=== PATIENT | female | born 1935 | race Caucasian/White ===

== ENCOUNTER 2017-08-23 12:20 | Emergency (ER) | payer OTHER ==
[~2017-08-23] VITALS: Ht 170.2 cm; Wt 93.3 kg
[~2017-08-23 12:20] MED LIST: DIPH-437 PO; DVN160125 PO; LPT/40 PO; WARF5TAB7 PO
[2017-08-23 12:29] VITALS: TEMP 36.7; Ht 170.2 cm; Wt 93.3 kg
[2017-08-23] MEDS ORDERED: VALS160T58 PO (12:39)
[2017-08-23] MEDS ORDERED: SIMV-151 PO (12:39)
[2017-08-23 12:56] VITALS: O2SAT 97
[2017-08-23] MEDS ORDERED: SODIUM CHLORIDE 0.9% 1000ML 1,000 ML IV STA (13:14)
--- NOTE | 2017-08-23 13:21 | EMERGENCY ROOM VISIT NOTE ---
History Report prepared by Steffen: Alysha Kulkarni Under the Supervision of: Dr. Shon Lara M.D. First contact with patient: 13:12 Chief Complaint: BLEEDING Stated Complaint: BLEEDING, RECENT INCREASE IN COUMADIN Nursing Triage Summary: pt reports coumadin increased on . noted last night blood in toilet after urinating pt reports noted blood on toilet paper after BM History of Present Illness The patient is an 81 year old female who presents to the Emergency Room with complaints of persistent rectal bleeding since last night. She does take daily Coumadin and reports this past when her she had her INR checked, it was too high, so she was told by the [facility] to increase her dosage from 5 mg to 10 mg. Last night, she got up to use the bathroom, and her told her in the morning there was blood on the edge of the toilet. This morning she had a BM, and when she wiped, she noticed "pink" on the toilet paper. She denies any past history of rectal bleeding in the past. She notes she was placed on the Coumadin for a history of PE's. The patient denies any recent fevers, abdominal pain, nausea, vomiting or increased bruising. Source of History: patient Onset: last night Position: other (rectal) Timing: other (persistent) Associated Symptoms: No fevers, No nausea, No vomiting, No abdominal pain Review of Systems See HPI for pertinent positives and negatives. A total of ten systems were reviewed and were otherwise negative. Past Medical & Surgical Medical Problems: (1) Pulmonary embolism Social History Smoking Status: Never Smoker Alcohol Use: occasionally Drug Use: none Marital Status: Housing Status: lives with family Occupation Status: retired Current/Historical Medications Scheduled Diphenhydramine-Acetaminophen (Tylenol Pm), 2 TAB PO HS Simvastatin (Simvastatin), 20 MG PO HS Valsartan/Hctz (Diovan Hct 160MG/12.5MG), 1 TAB PO HS Warfarin Sod (Jantoven), 5 MG PO DAILY Allergies Coded Allergies: No Known Allergies (Verified , 08/23/17) Physical Exam Vital Signs Date Time Temp Pulse Resp B/P (MAP) Pulse Ox O2 Delivery O2 Flow Rate FiO2 08/23/17 17:28 72 18 158/98 95 08/23/17 16:12 77 18 177/94 95 Room Air 08/23/17 14:23 73 20 152/81 98 Room Air 08/23/17 13:36 77 08/23/17 12:56 97 Room Air 08/23/17 12:29 36.7 90 20 151/89 97 Room Air Physical Exam GENERAL: Very well appearing, Awake, alert, well-appearing, in no distress. Dry mucous membranes HENT: Normocephalic, atraumatic. Oropharynx unremarkable. EYES: Normal conjunctiva. Sclera non-icteric. NECK: Supple. No nuchal rigidity. FROM. No JVD. RESPIRATORY: Clear to auscultation. CARDIAC: Regular rate, normal rhythm. Extremities warm and well perfused. Pulses equal. ABDOMEN: Soft, non-distended. No tenderness to palpation. No rebound or guarding. No masses. RECTAL: Brown stool, trace guaiac positive MUSCULOSKELETAL: Chest examination reveals no tenderness. The back is symmetrical on inspection without obvious abnormality. There is no CVA tenderness to palpation. No joint edema. LOWER EXTREMITIES: Calves are equal size bilaterally and non-tender. No edema. No discoloration. NEURO: Normal sensorium. No sensory or motor deficits noted. SKIN: No rash or jaundice noted. Medical Decision & Procedures Laboratory Results 08/23/17 12:45 Red Blood Count 4.49, Mean Corpuscular Volume 98.2, Mean Corpuscular Hemoglobin 32.1, Mean Corpuscular Hemoglobin Concent 32.7, Mean Platelet Volume 10.9, Neutrophils (%) (Auto) 67.3, Lymphocytes (%) (Auto) 21.9, Monocytes (%) (Auto) 9.3, Eosinophils (%) (Auto) 0.9, Basophils (%) (Auto) 0.5, Neutrophils # (Auto) 5.22, Lymphocytes # (Auto) 1.70, Monocytes # (Auto) 0.72, Eosinophils # (Auto) 0.07, Basophils # (Auto) 0.04 08/23/17 12:45 Test 08/23/17 12:45 08/23/17 15:20 White Blood Count 7.76 K/uL (4.8-10.8) Red Blood Count 4.49 M/uL (4.2-5.4) Hemoglobin 14.4 g/dL (12.0-16.0) Hematocrit 44.1 % (37-47) Mean Corpuscular Volume 98.2 fL (80-100) Mean Corpuscular Hemoglobin 32.1 pg (25-34) Mean Corpuscular Hemoglobin Concent 32.7 g/dl (32-36) Platelet Count 265 K/uL (130-400) Mean Platelet Volume 10.9 fL (7.4-10.4) Neutrophils (%) (Auto) 67.3 % Lymphocytes (%) (Auto) 21.9 % Monocytes (%) (Auto) 9.3 % Eosinophils (%) (Auto) 0.9 % Basophils (%) (Auto) 0.5 % Neutrophils # (Auto) 5.22 K/uL (1.4-6.5) Lymphocytes # (Auto) 1.70 K/uL (1.2-3.4) Monocytes # (Auto) 0.72 K/uL (0.11-0.59) Eosinophils # (Auto) 0.07 K/uL (0-0.5) Basophils # (Auto) 0.04 K/uL (0-0.2) RDW Standard Deviation 47.9 fL (36.4-46.3) RDW Coefficient of Variation 13.3 % (11.5-14.5) Immature Granulocyte % (Auto) 0.1 % Immature Granulocyte # (Auto) 0.01 K/uL (0.00-0.02) Prothrombin Time 26.7 SECONDS (9.0-12.0) Prothromb Time International Ratio 2.4 (0.9-1.1) Anion Gap 9.0 mmol/L (3-11) Est Creatinine Clear Calc Drug Dose 43.1 ml/min Estimated GFR () 49.1 Estimated GFR (Non- 42.4 BUN/Creatinine Ratio 23.9 (10-20) Calcium Level 9.5 mg/dl (8.5-10.1) Total Bilirubin 0.3 mg/dl (0.2-1) Direct Bilirubin < 0.1 mg/dl (0-0.2) Aspartate Amino Transf (AST/SGOT) 20 U/L (15-37) Alanine Aminotransferase (ALT/SGPT) 21 U/L (12-78) Alkaline Phosphatase 83 U/L (45-117) Total Protein 7.8 gm/dl (6.4-8.2) Albumin 3.9 gm/dl (3.4-5.0) Lipase 323 U/L (73-393) Chemistry Specimen Hemolysis Urine Color YELLOW Urine Appearance CLEAR (CLEAR) Urine pH 5.0 (4.5-7.5) Urine Specific [place] 1.020 (1.000-1.030) Urine Protein NEG (NEG) Urine Glucose (UA) NEG (NEG) Urine Ketones NEG (NEG) Urine Occult Blood NEG (NEG) Urine Nitrite NEG (NEG) Urine Bilirubin NEG (NEG) Urine Urobilinogen NEG (NEG) Urine Leukocyte Esterase SMALL (NEG) Urine WBC (Auto) 10-30 /hpf (0-5) Urine RBC (Auto) 0-4 /hpf (0-4) Urine Hyaline Casts (Auto) 0 /lpf (0-5) Urine Epithelial Cells (Auto) 10-20 /lpf (0-5) Urine Bacteria (Auto) 3+ (NEG) Laboratory results reviewed by me Medications Administered Medications (Trade) Dose Ordered Sig/Quinn Route Start Time Stop Time Status Last Admin Dose Admin Sodium Chloride 1,000 ml @ 999 mls/hr Q1H1M STAT IV 08/23/17 13:14 08/23/17 14:14 DC 08/23/17 13:34 999 MLS/HR ECG Indication: other (GI bleeding) Rate (beats per minute): 76 Rhythm: normal sinus Findings: no acute ischemic change, other (Normal intervals) ED Course 1313: The patient was evaluated in room B2. A complete history and physical exam was performed. 1314: Sodium Chloride 1000 ml @ 999 mls/hr IV I reevaluated the patient. Discussed results and discharge instructions: She verbalized understanding and agreement. The patient is ready for discharge. Medical Decision I reviewed the patient's past medical history, medications, and the nursing notes as described above. The differential diagnoses considered include: supratherapeutic INR, rectal bleeding, UTI, and vaginal bleeding. l The patient is a 81-year-old woman with a past medical history of dVT on Coumadin who presents to the emergency department with report of rectal bleeding where she noticed some blood on the toilet seat and then on the toilet paper today per HPI. Arrives, AFVSS in NAD. Denies any lightheadedness chest pain or shortness of breath. Labs unremarkable today with INR 2.4, H&H within normal limits. BUN however elevated over this would suggest a more likely upper GI bleed and the patient denies any melanotic stools rather red blood. Patient preferring discharge at this time. Findings and plan for follow-up d/w patient. Patient agreeable and d/c'd per discharge instructions. Medication Reconcilliation Current Medication List: was personally reviewed by me Blood Pressure Screening Patient's blood pressure: Elevated blood pressure The patient did not take her daily BP medication today. Impression Primary Impression: Rectal bleed Scribe Attestation The scribe's documentation has been prepared under my direction and personally reviewed by me in its entirety. I confirm that the note above accurately reflects all work, treatment, procedures, and medical decision making performed by me. Departure Information Dispostion Home / Self-Care Referrals Elo Olvera D.O. (PCP) Patient Instructions Bleeding Rectal, [facility] Additional Instructions Please follow up with your primary care physician in the next 1-3 days for re- evaluation and to discuss her symptoms and possible GI referral for colonoscopy. You did not have any active bleeding here in the emergency department. Stool was brown did test positive lightly for blood. Otherwise, your exam, EKG, and lab results did not show signs of an emergent condition at this time. Return to the emergency department for worsening symptoms as described in the accompanying instructions.
[2017-08-23 13:31] LABS: BASO % 0.5 %; BASO ABS # 0.04 K/uL (0-0.2); COMPLETE YES; EOS % 0.9 %; HEMATOCRIT 44.1 % (37-47); IG% 0.1 %; LYMPH % 21.9 %; MEAN CELL VOLUME 98.2 fL (80-100); MEAN CORPUSCULAR HEMOGLOBIN 32.1 pg (25-34); MEAN CORPUSCULAR HGB CONC 32.7 g/dl (32-36); MEAN PLATELET VOLUME 10.9 fL (7.4-10.4); MONO % 9.3 %; NEUT % 67.3 %; PLATELET COUNT 265 K/uL (130-400); RED BLOOD COUNT 4.49 M/uL (4.2-5.4); WHITE BLOOD COUNT 7.76 K/uL (4.8-10.8)
[2017-08-23 13:34] LABS: INR 2.4 (0.9-1.1); PROTHROMBIN TIME (PATIENT) 26.7 SECONDS (9.0-12.0)
[2017-08-23 14:11] LABS: ALT/SGPT 21 U/L (12-78); AST/SGOT 20 U/L (15-37); BLOOD UREA NITROGEN 29 mg/dl (7-18); BUN/CREATININE RATIO 23.9 (10-20); CALCIUM 9.5 mg/dl (8.5-10.1); CARBON DIOXIDE 27 mmol/L (21-32); CHLORIDE 104 mmol/L (98-107); GLUCOSE 103 mg/dl (70-99); SODIUM 140 mmol/L (136-145)
[2017-08-23 14:24] LABS: ALKALINE PHOSPHATASE 83 U/L (45-117)
[2017-08-23 15:28] LABS: URINE APPEARANCE CLEAR (CLEAR); URINE BILIRUBIN NEG (NEG); URINE COLOR YELLOW; URINE NITRITE NEG (NEG); UROBILINOGEN NEG (NEG); ZZUR CULT IF INDIC CLEAN CATCH YES
[2017-08-23 15:29] LABS: MANUAL MICROSCOPIC REQUIRED? NO; REVIEW REQ? NO
[2017-08-23 17:28] VITALS: BP 158/98; PULSE 72; O2SAT 95
--- NOTE | 2017-08-25 15:49 | Pharmacy Progress Note ---
ED Pharmacist Culture FollowUp Date of Service: Aug 25, 2017. Patient came to ER for rectal bleeding. Incidentally a urine culture showed E. Coli. After discussing with Dr Lara who saw the patient, it was decided that I parveen call the patient and see how she was feeling. If she was exhibiting any signs of infection then I would call in a RX for cephalexin 500mg BID X 7 days, but if she felt fine then no antibiotics were necessary as the patient did not have any signs of a UTI upon ER visit. When I called the patient she stated she felt perfectly fine. Of note, she denied urinary symptoms, fatigue, and confusion.Thus no antibiotics are warranted at this time. I did inform her to give us a call back if she should experience any new signs or symptoms of infection.
== END 2017-08-23 17:28 | disposition home or self-care (01) ==
LOC: C.EDB 12:24
DX: K62.5 Hemorrhage of anus and rectum (principal); Z86.711 Personal history of pulmonary embolism; Z79.01 Long term (current) use of anticoagulants; Z79.899 Other long term (current) drug therapy

== ENCOUNTER 2018-02-26 12:01 | Emergency (ER) | payer OTHER ==
[~2018-02-26] VITALS: Ht 167.6 cm; Wt 94.9 kg
[~2018-02-26 12:01] MED LIST changes: -DVN160125 PO; -LPT/40 PO; +SIMV-151 PO; +VALS160T58 PO
[2018-02-26 12:03] VITALS: Ht 167.6 cm; Wt 94.9 kg
[2018-02-26 13:01] LABS: BASO % 0.6 %; BASO ABS # 0.03 K/uL (0-0.2); EOS % 1.5 %; EOS ABS # 0.08 K/uL (0-0.5); HEMATOCRIT 40.4 % (37-47); HEMOGLOBIN 13.7 g/dL (12.0-16.0); IG# 0.01 K/uL (0.00-0.02); LYMPH % 24.9 %; MEAN CELL VOLUME 97.3 fL (80-100); MEAN CORPUSCULAR HGB CONC 33.9 g/dl (32-36); MEAN PLATELET VOLUME 10.4 fL (7.4-10.4); MONO % 12.6 %; MONO ABS # 0.66 K/uL (0.11-0.59); NEUT % 60.2 %; NEUT ABS # 3.15 K/uL (1.4-6.5); PLATELET COUNT 244 K/uL (130-400); RED CELL DISTRIBUTION WIDTH CV 13.1 % (11.5-14.5); RED CELL DISTRIBUTION WIDTH SD 46.7 fL (36.4-46.3); WHITE BLOOD COUNT 5.23 K/uL (4.8-10.8)
--- NOTE | 2018-02-26 13:15 | EMERGENCY ROOM VISIT NOTE ---
ED Visit Note First contact with patient: 12:23 I have seen and examined this patient with Karthik Small and generally agree with the treatment plan as discussed. Current/Historical Medications Scheduled Diphenhydramine-Acetaminophen (Tylenol Pm), 2 TAB PO HS Simvastatin (Simvastatin), 20 MG PO HS Valsartan/Hctz (Diovan Hct 160MG/12.5MG), 1 TAB PO HS Warfarin Sod (Jantoven), 5 MG PO DAILY Allergies Coded Allergies: No Known Allergies (Verified , 08/23/17) Vital Signs Date Time Temp Pulse Resp B/P (MAP) Pulse Ox O2 Delivery O2 Flow Rate FiO2 02/26/18 12:53 78 18 148/80 92 Room Air 02/26/18 12:03 36.3 93 20 139/77 95 Room Air Laboratory Results 02/26/18 12:48 Red Blood Count 4.15, Mean Corpuscular Volume 97.3, Mean Corpuscular Hemoglobin 33.0, Mean Corpuscular Hemoglobin Concent 33.9, Mean Platelet Volume 10.4, Neutrophils (%) (Auto) 60.2, Lymphocytes (%) (Auto) 24.9, Monocytes (%) (Auto) 12.6, Eosinophils (%) (Auto) 1.5, Basophils (%) (Auto) 0.6, Neutrophils # (Auto ) 3.15, Lymphocytes # (Auto) 1.30, Monocytes # (Auto) 0.66, Eosinophils # (Auto ) 0.08, Basophils # (Auto) 0.03 Test 02/26/18 12:48 White Blood Count 5.23 K/uL (4.8-10.8) Red Blood Count 4.15 M/uL (4.2-5.4) Hemoglobin 13.7 g/dL (12.0-16.0) Hematocrit 40.4 % (37-47) Mean Corpuscular Volume 97.3 fL (80-100) Mean Corpuscular Hemoglobin 33.0 pg (25-34) Mean Corpuscular Hemoglobin Concent 33.9 g/dl (32-36) Platelet Count 244 K/uL (130-400) Mean Platelet Volume 10.4 fL (7.4-10.4) Neutrophils (%) (Auto) 60.2 % Lymphocytes (%) (Auto) 24.9 % Monocytes (%) (Auto) 12.6 % Eosinophils (%) (Auto) 1.5 % Basophils (%) (Auto) 0.6 % Neutrophils # (Auto) 3.15 K/uL (1.4-6.5) Lymphocytes # (Auto) 1.30 K/uL (1.2-3.4) Monocytes # (Auto) 0.66 K/uL (0.11-0.59) Eosinophils # (Auto) 0.08 K/uL (0-0.5) Basophils # (Auto) 0.03 K/uL (0-0.2) RDW Standard Deviation 46.7 fL (36.4-46.3) RDW Coefficient of Variation 13.1 % (11.5-14.5) Immature Granulocyte % (Auto) 0.2 % Immature Granulocyte # (Auto) 0.01 K/uL (0.00-0.02) Departure Information Referrals Elo Olvera D.O. (PCP) Patient Instructions [facility]
[2018-02-26 13:16] LABS: CALCIUM 9.5 mg/dl (8.5-10.1); CREATININE 1.03 mg/dl (0.60-1.20); POTASSIUM 3.8 mmol/L (3.5-5.1)
--- NOTE | 2018-02-26 14:27 | DIAGNOSTIC IMAGING REPORT ---
BILATERAL LOWER EXTREMITY VENOUS DOPPLER HISTORY: hx DVT; increasing leg cramping bilaterally COMPARISON STUDY: None. FINDINGS: There is normal compressibility, flow, and augmentation within the bilateral lower extremity deep venous systems. The calf vessels were suboptimally visualized due to the patient's body habitus but likely patent. There is a 5.9 x 3.3 x 1.5 cm popliteal cyst on the right. IMPRESSION: No DVT within the right or left lower extremity. Electronically signed by: Sohan Lara M.D. 02/26/2018 2:26 PM Dictated Date/Time: 02/26/2018 2:25 PM
[2018-02-26 15:04] VITALS: BP 142/63; PULSE 73; TEMP 36.3; O2SAT 97
--- NOTE | 2018-02-26 17:45 | EMERGENCY ROOM VISIT NOTE ---
ED Visit Note First contact with patient: 12:23 Chief Complaint: Bilateral leg cramping. History of Present Illness: Ms. Blanco is an 82-year-old white female who ambulates into the ED complaining of bilateral lateral leg cramping of the thighs and lower legs. Historically patient reports she is a history of pulmonary emboli and is currently on Coumadin therapy. Patient reports that she has just returned from a trip from [place]. While on her trip she reports that she was in a wheelchair or on a motorized scooter for 12 hours a day; family members did this because she has osteoarthritis of the knees and felt she would be more comfortable. Patient reports since being home for the last few days she has noticed that when ambulating during the day she is developing cramping sensations over the lateral aspect of the thighs and the lower legs and when sleeping at night she is also having cramping. She has not identified any alleviating factors related to this discomfort. She rates her discomfort 8/10. She has not taken any medications for her discomfort prior to arrival at the hospital. She denies any associated symptoms including fevers, chills, sweats, skin eruptions , leg swelling, palpitations, orthopnea, dependent edema, recent trauma, chest pain, shortness of breath, leg weakness/numbness/tingling. Review of Systems: As noted above in history of present illness. 8 body systems were reviewed and found to be negative as noted above. Past Medical History: As previously noted, hypertension, unspecified kidney disease, status post appendectomy and cholecystectomy. Current Medications: Medications Dose Route/Sig Max Daily Dose Days Date Category Diovan Hct 160MG/12.5MG (HCTZ/Valsartan) 1 Tab Tab 1 Tab PO HS 08/23/17 Reported Simvastatin 20 Mg Tab 20 Mg PO HS 08/23/17 Reported Tylenol Pm (Diphenhydramine-Acetaminophen) 1 Tab Tab 2 Tab PO HS 11/01/15 Reported Jantoven (Warfarin Sodium) 5 Mg Tab 5 Mg PO DAILY 06/04/13 Reported Allergies to Medications: Patient denies. Social History: Patient is not currently employed; she lives with her spouse and feels safe in her home environment; she denies tobacco and alcohol use. Physical Examination: Vital Signs: Date Time Temp Pulse Resp B/P (MAP) Pulse Ox O2 Delivery O2 Flow Rate FiO2 02/26/18 15:04 36.3 73 18 142/63 97 02/26/18 14:53 73 18 142/63 97 Room Air 02/26/18 12:53 78 18 148/80 92 Room Air 02/26/18 12:03 36.3 93 20 139/77 95 Room Air GENERAL: 82-year-old female in mild to moderate distress due to pain, nontoxic- appearing, afebrile and hemodynamically stable. NEUROLOGICAL: Awake, alert and oriented to person, place and time. Answering questions appropriately and following commands. Normal gait. Good hand eye coordination. No focal motor or sensory deficits. SKIN: Warm, dry and pink. No soft tissue eruptions or trauma noted. HEENT: Atraumatic and normocephalic. BACK: No tenderness over the bony spine. No CVA tenderness. THORAX: Lungs sounds are clear to auscultation and equal bilaterally with symmetrical chest wall. No wheezing, rales or rhonchi. No crepitus, tenderness , subcutaneous air or deformities noted. HEART: Regular rate and rhythm. No gallops, rubs or murmurs are appreciated. ABDOMEN: Obese, soft and nontender. Positive bowel sounds in all quadrants. No guarding, rigidity or organomegaly. EXTREMITIES: Moves all extremities well on command and with purpose. Distal pulses and capillary refill are intact bilaterally. No calf tenderness or cords. 4/5 muscle strength in all movements of the hips, knees, ankles and feet. Mild dependent edema bilaterally. Able to distinguish light sensations through all dermatomes of the lower legs and feet. ED Course: Patient is assessed as noted above. Patient's medication list was reviewed. Patient was offered pain medication and refused. Laboratory Testing: Test 02/26/18 12:48 02/26/18 12:49 Range/Units White Blood Count 5.23 4.8-10.8 K/uL Red Blood Count 4.15 4.2-5.4 M/uL Hemoglobin 13.7 12.0-16.0 g/dL Hematocrit 40.4 37-47 % Mean Corpuscular Volume 97.3 80-100 fL Mean Corpuscular Hemoglobin 33.0 25-34 pg Mean Corpuscular Hemoglobin Concent 33.9 32-36 g/dl Platelet Count 244 130-400 K/uL Mean Platelet Volume 10.4 7.4-10.4 fL Neutrophils (%) (Auto) 60.2 % Lymphocytes (%) (Auto) 24.9 % Monocytes (%) (Auto) 12.6 % Eosinophils (%) (Auto) 1.5 % Basophils (%) (Auto) 0.6 % Neutrophils # (Auto) 3.15 1.4-6.5 K/uL Lymphocytes # (Auto) 1.30 1.2-3.4 K/uL Monocytes # (Auto) 0.66 0.11-0.59 K/uL Eosinophils # (Auto) 0.08 0-0.5 K/uL Basophils # (Auto) 0.03 0-0.2 K/uL RDW Standard Deviation 46.7 36.4-46.3 fL RDW Coefficient of Variation 13.1 11.5-14.5 % Immature Granulocyte % (Auto) 0.2 % Immature Granulocyte # (Auto) 0.01 0.00-0.02 K/uL Sodium Level 139 136-145 mmol/L Potassium Level 3.8 3.5-5.1 mmol/L Chloride Level 106 98-107 mmol/L Carbon Dioxide Level 27 21-32 mmol/L Anion Gap 6.0 3-11 mmol/L Blood Urea Nitrogen 21 7-18 mg/dl Creatinine 1.03 0.60-1.20 mg/dl Est Creatinine Clear Calc Drug Dose 48.9 ml/min Estimated GFR () 58.6 Estimated GFR (Non- 50.6 BUN/Creatinine Ratio 20.2 10-20 Random Glucose 81 70-99 mg/dl Calcium Level 9.5 8.5-10.1 mg/dl Magnesium Level 2.2 1.8-2.4 mg/dl Bedside Prothrombin Time INR 2.6 0.9-1.1 Bilateral Lower Extremity Venous Doppler Ultrasounds: Were reviewed by myself and read by the radiologist showing no right or left lower extremity DVTs. Radiologist does note a right sided popliteal cyst. Patient was reassessed multiple times during her stay in the emergency department. Patient's case was reviewed with Dr. Monroe; he and apparently assessed the patient we agreed on diagnostic approach, treatment, disposition and plan. Patient was educated about today's findings and instructed on her treatment plan ; she verbalized understanding and agreement with this plan. Clinical Impression: Bilateral leg cramping. Decision-Making: Initially my differential diagnosis I considered DVT, electrolyte abnormality, metabolic disturbance, muscle strain and other causes. Disposition: Patient discharged home in stable condition accompanied by her ; prior to departure she was reassessed and subjectively reported she was feeling better and she was pain-free. Plan: Patient was encouraged to continue her current medications as prescribed. Patient was encouraged to use 650 mg of acetaminophen as needed for pain. Patient was encouraged to stay well-hydrated with increased clear fluids. Patient was encouraged to follow-up with her PCP for recheck. Patient was encouraged return the ED for worsening cramping, leg swelling, fevers, chest pain, shortness of breath, palpitations or any new/concerning symptoms.
== END 2018-02-26 15:05 | disposition home or self-care (01) ==
LOC: C.EDB 12:02 → C.EDD 15:05
DX: R25.2 Cramp and spasm (principal); M17.0 Bilateral primary osteoarthritis of knee; Z86.711 Personal history of pulmonary embolism; I10 Essential (primary) hypertension; N28.9 Disorder of kidney and ureter, unspecified; Z90.89 Acquired absence of other organs; Z79.01 Long term (current) use of anticoagulants; Z79.899 Other long term (current) drug therapy

== ENCOUNTER 2025-02-24 21:08 | Inpatient (IN) ==
[2025-02-24 21:37] LABS: iSTAT Creatinine 1.6 mg/dl (0.6-1.3); iSTAT Hemoglobin 13.3 g/dl (12.0-16.0); iSTAT Ionized Calcium 1.16 mmol/l (1.12-1.32)
[2025-02-24] MEDS: ONDANSETRON INJ 2 MG/ML 2 ML VIAL IV STA (21:42)
[2025-02-24] MEDS: ACETAMINOPHEN 1,000 MG/100 ML VIAL IV STA (21:43)
[2025-02-24] MEDS: SODIUM CHLORIDE 0.9% 1,000 ML IV SCH (21:44)
[2025-02-24] MEDS: SODIUM CHLORIDE 0.9% 500 ML IV ONE (21:44)
[2025-02-24 21:59] LABS: Hematocrit (blood only) 37.4 % (37.0-47.0); Hemoglobin 12.6 g/dl (12.0-16.0); Mean Corpuscular Hemoglobin 30.9 pg (25.0-34.0); Mean Corpuscular Hgb Conc 33.7 g/dL (32.0-36.0); Mean Corpuscular Volume 91.7 fL (80.0-100.0); Mean Platelet Volume 10.5 fL (9.4-12.4); Platelet Count 318 K/uL (130-400); RDW Coefficient of Variation 13.4 % (11.5-14.5); RDW Standard Deviation 45.2 fL (36.4-46.3); Red Blood Count 4.08 M/uL (4.20-5.40); White Blood Count 14.47 K/ul (4.8-10.8)
[2025-02-24 22:12] LABS: Appearance Urine Clear (Clear); Bacteria Urine Automated 4+ (None Seen); Bilirubin Urine 1+ (Negative); Blood Urine Trace (Negative); Cast Urine Automated 0-2 /lpf (0-2); Color Urine Dark Yellow; Glucose Urine UA Negative (Negative); Ketones Urine Trace (Negative); Leukocyte Esterase Urine 2+ (Negative); Nitrite Urine Negative (Negative); Protein Urine 1+ (Negative); RBC Urine Automated 0-2 /hpf (0-2); Specific Gravity Urine 1.016 (1.000-1.030); Urobilinogen Urine Negative (Negative); WBC Urine Automated 21-50 /hpf (0-5); pH Urine 5.5 (4.5-7.5)
[2025-02-24 22:17] LABS: BUN Creatinine Ratio 13.6 (10-20); Calcium 9.5 mg/dl (8.6-10.3); Creatinine Clr Calc Pharmacy 26.4 ml/min
[2025-02-24 22:19] LABS: Basophils # (auto) 0.02 K/uL (0.00-0.20); Basophils % (auto) 0.1 %; Immature Granulocytes # (auto) 0.05 K/uL (0.01-0.20); Immature Granulocytes % (auto) 0.3 %; Lymphocytes # (auto) 0.52 K/uL (1.20-3.40); Lymphocytes % (auto) 3.6 %; Monocytes # (auto) 0.21 K/uL (0.11-0.59); Monocytes % (auto) 1.5 %; Neutrophils # (auto) 13.67 K/uL (1.40-6.50); Neutrophils % (auto) 94.5 %
[2025-02-24 22:24] LABS: Troponin I High Sensitivity 15.6 pg/ml (0-14)
[2025-02-24 22:34] LABS: Albumin Level 4.1 gm/dl (3.4-5.0); Bilirubin,Total 3.1 mg/dl (0.2-1.0); Total Protein 8.1 gm/dl (6.0-8.3)
[2025-02-24] MEDS: cefTRIAXone SODIUM 2,000 MG/50 ML BAG IV STA (23:01)
[2025-02-24] MEDS ORDERED: HYDROmorphone INJ 0.5 MG/0.5 ML SYR IV PRN (23:22)
--- NOTE | 2025-02-24 23:37 | Emergency Department Note ---
Impression & Plan Pancreatitis, Elevated LFTs, Vomiting, Acute UTI (urinary tract infection), Back pain ED Provider Note NAME: ELENA PARISI AGE: 89 SEX: Female INFORMANT: Patient ED PROVIDER(S): Karthik Brown MD CHIEF COMPLAINT: Abdominal pain PLAN: Disposition: Admitted Outpatient prescription management: none Referral: None MEDICAL DECISION MAKING: Patient presented because of back and abdominal pain. She was tender on examination. Workup was initiated. She was found to have a leukocytosis on CBC. Chemistry panel unremarkable. Patient had elevated LFTs and significant elevation of lipase consistent with pancreatitis. The patient was receiving saline hydration. She had received IV Tylenol before labs were back. Patient was given IV Rocephin due to UTI found on urinalysis. IV metronidazole was added for coverage of the biliary tree. Patient's IV fluids were changed to lactated Ringer's. CT imaging reveals degenerative changes in the spine and findings concerning for pancreatitis. Official radiology reads are pending at this time. I did discuss the case with on-call gastroenterology, . Case discussed and diagnostics were reviewed. He recommended admission. Patient will need GI consultation and he will see her in the morning. Did discuss MRCP and he was in agreement. Patient was reassessed and was doing well. IV Dilaudid was ordered as she was still having some pain. [facility] Dr. Johnson. Discussed GI consultation and MRCP recommendations. Patient was evaluated in the ER and admitted for further management Care/management discussed with: food production manager Level of care consideration(s): After review of the information above and other included data, I feel the patient required escalation of care to admission Triage Nursing notes: reviewed and agree them. Vital Signs: reviewed and remarkable for no significant abnormalities Additional History obtained from: none Chronic Medical/Social Conditions affecting care: Spinal stenosis Prior/ Outside/ External records reviewed: none Differential Diagnosis: Renal colic, UTI, appendicitis, diverticulitis, mesenteric ischemia, aortic pathology, infections, inflammatory bowel disease, PUD, biliary pathology, spinal pathology, as well as other pathologies. Diagnostics, independently interpreted by me: ECG: Twelve-lead ECG reveals a normal sinus rhythm at 93 bpm. LVH. No T WI. Cardiac Monitoring: Cardiac monitoring ordered by me: The patient was placed on continuous cardiac monitoring and observed. It revealed a normal sinus rhythm at 75 beats per minute without ectopy or evidence of dysrhythmia. Medical decision rules: none Imaging studies: CT imaging of the abdomen pelvis reveals biliary ductal dilatation with stranding around the pancreatic head concerning for pancreatitis. CT imaging of the lumbar spine reveals significant degenerative changes. Official radiology report is pending at this time. I refer you to the EMR for further details. HPI: 89 year old Female arrives for evaluation of abdominal pain. This started yesterday and is worsening today. The patient also notes the following associated symptoms, low back pain and right-sided abdominal pain with nausea and vomiting. Patient has a history of spinal stenosis and back pain. She was seen by pain management. No injections were performed. Patient notes that her back was more sore and she started to develop abdominal discomfort. She vomited twice today. The patient has took a dose of prednisone today for relieving factors. Current pain is rated as 7/10. 2 weeks ago the patient felt like she had a gallbladder attack with right upper quadrant abdominal discomfort vomiting and she felt chilled. She notes she was not seen for that and it resolved on its own. Pt denies LOC, headache, fevers, chills, diaphoresis, visual changes, neck pain, chest pain, breathing difficulties, nausea, vomiting, abdominal pain, back pain, melena, hematochezia, urinary symptoms, numbness, weakness, lymphadenopathy, rash, or other complaints.. PAST MEDICAL HISTORY: See Below, hypertension, hyperlipidemia PAST SURGICAL HISTORY: See Below, cholecystectomy SOCIAL HISTORY: See Below, HOME MEDICATIONS: See Below ALLERGIES: See Below VITALS: See Below PHYSICAL EXAMINATION: GENERAL: Awake, alert, uncomfortable-appearing, in no distress HENT: Normocephalic, atraumatic. Oropharynx unremarkable. EYES: Normal conjunctiva. Sclera non-icteric. NECK: Inspection normal. Non-tender. Supple. No nuchal rigidity. FROM. No masses. RESPIRATORY: Clear to auscultation. No wheezes. No rales. Normal respiratory effort. CARDIAC: Normal rate. Normal rhythm. No murmurs. No rubs. Extremities warm and well perfused. Pulses equal. No JVD. GI: Soft, non-distended. Midline and right upper quadrant tenderness to palpation. No rebound or guarding. No masses. RECTAL: Deferred. MUSCULOSKELETAL: Atraumatic. Chest examination reveals no tenderness. The back is kyphotic on inspection without obvious abnormality. There is no CVA tenderness to palpation. No joint edema. LOWER EXTREMITIES: Calves are equal size bilaterally and non-tender. No edema. No discoloration. NEURO: Normal sensorium. No sensory or motor deficits noted. SKIN: No rash or jaundice noted. PROCEDURES: none CRITICAL CARE: none OBSERVATION NOTE: none Past Med/Surg History Problem List (Updated 02/24/25 @ 23:37 by Karthik Brown MD) Back pain (Acute) Acute UTI (urinary tract infection) (Acute) Vomiting (Acute) Elevated LFTs (Acute) Pancreatitis (Acute) HTN (hypertension) HLD (hyperlipidemia) Medical History No pertinent family history HTN (hypertension) HLD (hyperlipidemia) Surgical History No pertinent past surgical history Social History Smoking Status: Never smoker Preferred Language: Swiss Feels Safe at Home: Yes Allergies Allergies Allergy/AdvReac Type Severity Reaction Status Date / Time Penicillins Allergy Intermediate Hives Verified 02/24/25 22:19 Influenza Virus Vaccines AdvReac Intermediate Muscle Pain Verified 02/24/25 22:19 Home Meds Home Medications Medication Instructions Recorded Confirmed omeprazole magnesium 20 mg 20 mg PO DAILY 06/03/22 02/24/25 tablet,delayed release (Prilosec OTC) simvastatin 20 mg tablet 20 mg PO HS 06/03/22 02/24/25 warfarin 5 mg tablet 2.5 mg PO 4XWK 06/03/22 02/24/25 warfarin 5 mg tablet 5 mg PO 3XWK 06/03/22 02/24/25 amlodipine 5 mg tablet 5 mg PO DAILY 02/24/25 02/24/25 aspirin 81 mg tablet,delayed 81 mg PO HS 02/24/25 02/24/25 release cholecalciferol (vitamin D3) 25 25 mcg PO DAILY 02/24/25 02/24/25 mcg (1,000 unit) capsule (Vitamin D3) cyanocobalamin (vitamin B-12) 100 100 mcg PO DAILY 02/24/25 02/24/25 mcg tablet (Vitamin B-12) hydrochlorothiazide 12.5 mg tablet 12.5 mg PO DAILY 02/24/25 02/24/25 losartan 50 mg tablet 50 mg PO DAILY 02/24/25 02/24/25 Results & Data (ED) Vital Signs Vital Signs - 24 hr 02/24/25 20:54 02/24/25 21:18 02/24/25 21:54 Temperature 36.3 C L Temperature Source Axillary Pulse Rate 99 H 102 H 96 H Pulse Rate [Apical] Pulse Rhythm Regular Pulse Rhythm [Apical] Pulse Strength Normal Pulse Strength [Apical] Respiratory Rate 24 Respiratory Effort / Characteristics Non-Labored Respiratory Depth Normal Respiratory Pattern Regular Blood Pressure 175/77 H Blood Pressure [Left Arm] Blood Pressure Mean 109 Blood Pressure Mean [Left Arm] Blood Pressure Position Lying Blood Pressure Position [Left Arm] Pulse Oximetry 96 93 Oxygen Delivery Method Room Air Room Air Sepsis Recent Fever Within 48 Hours No Sepsis New/Unexplained Change in Mental Status N/A Sepsis Action Taken by Nursing No Action Required 02/24/25 23:07 Temperature Temperature Source Pulse Rate Pulse Rate [Apical] 75 Pulse Rhythm Pulse Rhythm [Apical] Regular Pulse Strength Pulse Strength [Apical] Normal Respiratory Rate 17 Respiratory Effort / Characteristics Non-Labored Respiratory Depth Normal Respiratory Pattern Regular Blood Pressure Blood Pressure [Left Arm] 126/70 Blood Pressure Mean Blood Pressure Mean [Left Arm] 88 Blood Pressure Position Blood Pressure Position [Left Arm] Lying Pulse Oximetry 93 Oxygen Delivery Method Room Air Sepsis Recent Fever Within 48 Hours Sepsis New/Unexplained Change in Mental Status Sepsis Action Taken by Nursing Laboratory Data 02/24/25 21:20 02/24/25 21:20 Lab Results 02/24/25 02/24/25 02/24/25 Range/Units 21:00 21:20 21:26 WBC 14.47 H (4.8-10.8) K/ul RBC 4.08 L (4.20-5.40) M/uL Hgb 12.6 (12.0-16.0) g/dl POC Hgb 13.3 (12.0-16.0) g/dl Hct 37.4 (37.0-47.0) % POC Hct 39 (37-47) % MCV 91.7 (80.0-100.0) fL MCH 30.9 (25.0-34.0) pg MCHC 33.7 (32.0-36.0) g/dL RDW Std Deviation 45.2 (36.4-46.3) fL RDW Coeff of [place]thea 13.4 (11.5-14.5) % Plt Count 318 (130-400) K/uL MPV 10.5 (9.4-12.4) fL Immature Gran % (Auto) 0.3 % Neut % (Auto) 94.5 % Lymph % (Auto) 3.6 % [place] % (Auto) 1.5 % Eos % (Auto) 0.0 % Baso % (Auto) 0.1 % Neut # (Auto) 13.67 H (1.40-6.50) K/uL Lymph # (Auto) 0.52 L (1.20-3.40) K/uL [place] # (Auto) 0.21 (0.11-0.59) K/uL Eos # (Auto) 0.00 (0.00-0.50) K/uL Baso # (Auto) 0.02 (0.00-0.20) K/uL Immature Gran # (Auto) 0.05 (0.01-0.20) K/uL POC Sodium 136 (135-144) mmol/L Sodium 133 L (136-145) mmol/L POC Potassium 4.0 (3.3-5.0) mmol/L Potassium 4.0 (3.5-5.1) mmol/L POC Chloride 104 (101-112) mmol/L Chloride 101 (98-107) mmol/L Carbon Dioxide 21 (21-32) mmol/L POC Total CO2 19 L (24-31) mmol/L Anion Gap 11 (3-11) POC Anion Gap 18.0 (16-25) mmol/L POC BUN 21 H (7-18) mg/dl BUN 22 (6-23) mg/dl Creatinine 1.62 H (0.6-1.2) mg/dl POC Creatinine 1.6 H (0.6-1.3) mg/dl Est Cr Clr Drug Dosing 26.4 ml/min eGFR 30.18 BUN/Creatinine Ratio 13.6 (10-20) Glucose 133 H (70-99(Fasting)) mg/dl POC Glucose (other) 140 H (70-99) mg/dl Calcium 9.5 (8.6-10.3) mg/dl POC Ioniz Calcium [place] 1.16 (1.12-1.32) mmol/l Total Bilirubin 3.1 H (0.2-1.0) mg/dl AST 203 H (13-39) U/L ALT 197 H (7-52) U/L Alkaline Phosphatase 194 H (34-104) U/L Troponin I High Sens 15.6 H (0-14) pg/ml Total Protein 8.1 (6.0-8.3) gm/dl Albumin 4.1 (3.4-5.0) gm/dl Globulin 4.0 (2.5-4.0) gm/dl Albumin/Globulin Ratio 1.0 (0.9-2) Lipase 39346 H (11-82) U/L Urine Color Dark Yellow Urine Appearance Clear (Clear) Urine pH 5.5 (4.5-7.5) Ur Specific [place] 1.016 (1.000-1.030) Urine Protein 1+ H (Negative) Urine Glucose (UA) Negative (Negative) Urine Ketones Trace H (Negative) Urine Blood Trace H (Negative) Urine Nitrite Negative (Negative) Urine Bilirubin 1+ H (Negative) Urine Urobilinogen Negative (Negative) Ur Leukocyte Esterase 2+ H (Negative) Urine WBC (Auto) 21-50 H (0-5) /hpf Urine RBC (Auto) 0-2 (0-2) /hpf U Hyaline Cast (Auto) 0-2 (0-2) /lpf U Epithel Cells (Auto) 3-5 H (0-2) /hpf Urine Bacteria (Auto) 4+ H (None Seen) Administered Medications Discontinued Medications Sodium Chloride (Nss) 500 mls @ 999 mls/hr IV .Q31M ONE Stop: 02/24/25 21:58 Last Infusion: 02/24/25 22:34 Dose: Infused Documented By: Admin: 02/24/25 21:44 Dose: 999 mls/hr Documented By: LYNETTE Sodium Chloride (Nss) 1,000 mls @ 125 mls/hr IV .Q8H KAIDEN Stop: 02/25/25 21:29 Last Admin: 02/24/25 21:44 Dose: 125 mls/hr Documented By: LYNETTE Acetaminophen (Ofirmev) 1,000 mg in 100 mls @ 400 mls/hr IV NOW STA Stop: 02/24/25 21:42 Last Infusion: 02/24/25 22:05 Dose: Infused Documented By: Admin: 02/24/25 21:43 Dose: 400 mls/hr Documented By: LYNETTE Ceftriaxone Sodium (Rocephin) 2,000 mg in 50 mls @ 100 mls/hr IV NOW STA Stop: 02/24/25 23:05 Last Admin: 02/24/25 23:01 Dose: 100 mls/hr Documented By: JE Ondansetron HCl (Ondansetron Inj 2 Mg/Ml 2 Ml Vial) 4 mg IV NOW STA Stop: 02/24/25 21:29 Last Admin: 02/24/25 21:42 Dose: 4 mg Documented By: LYNETTE Discharge Plan Visit Data Chief Complaint: Abdominal Pain Stated Complaint: BACK AND ABD PAIN, VOMITING SINCE ED Provider: Karthik Brown Discharge Problem: Pancreatitis, Elevated LFTs, Vomiting, Acute UTI (urinary tract infection), Back pain Forms Stand Alone Forms: [facility] IO Prescriptions Prescriptions: No Action simvastatin 20 mg tablet 20 mg PO HS warfarin 5 mg tablet 5 mg PO 3XWK Rx Instructions: TAKES TU, , & SAT. EVENINGS warfarin 5 mg tablet 2.5 mg PO 4XWK Rx Instructions: TAKES SUN, MON, WED, & FRI EVENINGS omeprazole magnesium [Prilosec OTC] 20 mg Tablet,Delayed Release (Dr/Ec) 20 mg PO DAILY losartan 50 mg tablet 50 mg PO DAILY cyanocobalamin (vitamin B-12) [Vitamin B-12] 100 mcg Tablet 100 mcg PO DAILY amlodipine 5 mg tablet 5 mg PO DAILY aspirin 81 mg Tablet,Delayed Release (Dr/Ec) 81 mg PO HS cholecalciferol (vitamin D3) [Vitamin D3] 25 mcg (1,000 unit) Capsule 25 mcg PO DAILY hydrochlorothiazide 12.5 mg tablet 12.5 mg PO DAILY Referrals Referrals: Elo Olvera DO [Primary Care Provider] -
--- NOTE | 2025-02-24 23:57 | CT Scan Report ---
Exam(s): CT ABDOMEN + PELVIS Without Contrast EXAM: CT Abdomen and Pelvis Without Intravenous Contrast CLINICAL HISTORY: Reason for exam: right and mid abd pain, vomiting. TECHNIQUE: Axial computed tomography images of the abdomen and pelvis without intravenous contrast. CTDI is 26.28 mGy and DLP is 1242.93 mGy-cm. Automated exposure control was utilized for the study. A dose lowering technique was utilized adhering to the principles of ALARA. COMPARISON: No relevant prior studies available. FINDINGS: The exam is limited due to lack of contrast. Lung bases: No consolidation. ABDOMEN: Liver: There are multiple lucencies within the liver, the largest of which measures 2.5 cm in size Gallbladder and bile ducts: The patient is status post cholecystectomy. The common bile duct is dilated at 1.8 cm.. Pancreas: The visualized portions of the pancreas, on this noncontrast study, are grossly unremarkable.. Spleen: No splenomegaly. Adrenals: The left adrenal gland is unremarkable. There is a 1.5 cm nodule in the right adrenal gland Kidneys and ureters: No obstructing stones. No hydronephrosis. There is a 2.8 cm lucency in the left kidney. Stomach and bowel: There is a moderate hiatal hernia. There is air and stool noted in the colon. There are diverticula present on the colon. No significant inflammatory changes are seen. PELVIS: Appendix: Unremarkable CT scan appearance noted the appendix.. Bladder: No calculi are noted within the bladder.. Reproductive: Unremarkable as visualized. ABDOMEN and PELVIS: Intraperitoneal space: No free air. No significant fluid collection. Bones/joints: There are degenerative changes in the spine.. Soft tissues: Unremarkable. Vasculature: There are atherosclerotic changes. No abdominal aortic aneurysm. Lymph nodes: No enlarged lymph nodes. IMPRESSION: The patient is status post cholecystectomy. The common bile duct is dilated. A 1.5 cm nodule in the right adrenal gland may represent an adenoma. Diverticulosis. There are lucencies noted within the liver which may represent cysts. Masses cannot be excluded on this noncontrast study. For further evaluation, consider correlation with a nonemergent contrast-enhanced MRI. There is a possible left renal cyst. Electronically signed by: Bill Stover MD 02/24/25 23:56 PM
--- OUTSIDE RECORDS SUMMARY | 2025-02-25 00:01 | External Medical Summary | Summary of Care ---
Author Name Unknown Organization [facility] Address [address] [facility] [place] [address] Phone [phone] Care Team Providers Care Street Commissioner Name Role Phone Elo Olvera Primary Care Provider Reason for Visit * Reason Comments Dosage Adjustment In Person (Anticoag Cl inic) Encounter Details Date Type Department Care Team (Latest Contact Info) Description 01/23/2025 2:10 PM EDT Anticoagulation Pharmacy, [address] [place] [address] [place] [address] Anticoagulation management encounter*; History of pulmonary embolism; COAGULATION DISORDER ACQUIRED COAGULATN DEFECT Allergies Active Allergy Reactions Criticality Noted Date Comments Influenza Vaccines 01/21/2023 Penicillins 08/08/2016 Hives documented as of this encounter (statuses as of 01/23/2025) Medications ECOTRIN LOW STRENGTH 81 MG PO TBECIndications:O ther pulmonary embolism and infarction One pill by mouth once a day 100 Tab 5 10/30/20 11 Active Additional Information Patient taking differently:Oral,Takes at night, Reported on 01/05/2025 Omeprazole 20 MG Oral Capsule Delayed Release (PriLOSEC) 1 Capsule. 06/03/20 22 Active Vitamin D3 25 MCG (1000 UT) Oral Capsule Take 1 Capsule by mouth daily. 1 Capsule 08/28/20 23 Active Warfarin Sodium 5 MG Oral Tablet (Coumadin)Indicat ions:History of pulmonary embolism,Acquired coagulation factor deficiency (HCC),Anticoagula tion management encounter,wellness program coordinator current use of anticoagulant therapy,Prothromb in gene mutation (HCC),Acquired coagulation factor deficiency (HCC) Take 2.5 mg (1/2 tablet) to 5 mg (1 tablet) by mouth daily as directed by anticoagulation clinic 90 Tablet 3 01/18/20 24 Active Simvastatin 20 MG Oral Tablet (Zocor)Indication s:Mixed dyslipidemia TAKE 1 TABLET BY MOUTH EVERYDAY AT BEDTIME 90 Tablet 3 06/06/20 24 Active Vitamin B-12 100 MCG Oral Tablet (vitamin B-12) Take 1 Tablet by mouth in the morning. Active amLODIPine Besylate 5 MG Oral Tablet (Norvasc)Indicati ons:HTN, goal below 140/90 Take 1 Tablet by mouth in the morning. 90 Tablet 3 08/29/20 24 Active hydroCHLOROthiazi de 12.5 MG Oral Tablet Take 1 Tablet by mouth in the morning. 90 Tablet 3 09/02/20 24 Active Losartan Potassium 50 MG Oral Tablet (Cozaar) TAKE 1 TABLET BY MOUTH EVERY DAY IN THE MORNING 90 Tablet 3 11/14/20 24 Active Rollator Ultra-LightIndica tions:Ambulatory dysfunction 1 Rollator walker with brakes. Dx. Ambulatory dysfunction, low back pain 1 Each 12/13/19 25 Active documented as of this encounter (statuses as of 01/23/2025) Active Problems Problem Noted Date Diagnosed Date Hyperparathyroidism 01/21/2023 Hypertensive kidney disease with stage 3b chronic kidney disease 01/21/2022 Stage 3b chronic kidney disease 09/24/2020 Overview: Per CKD protocol - Per CKD protocol Actinic keratosis 06/20/2019 Prothrombin gene mutation 01/12/2019 Chronic anticoagulation 01/12/2019 Hx of nonmelanoma skin cancer 06/16/2018 Overview (06/16/2018): basal cell carcinoma (L nasal ala/L side of nose) Mixed dyslipidemia 12/10/2016 Essential hypertension with goal blood pressure less than 140/90 11/13/2016 Primary osteoarthritis of both knees 11/14/2015 Vitamin D insufficiency 06/13/2015 Hyperlipidemia with target LDL less than 100 COAGULATION DISORDER ACQUIRED COAGULATN DEFECT 1 11/21/2007 History of pulmonary embolism 08/26/2008 Deafness in left ear 06/13/2004 Female stress incontinence documented as of this encounter (statuses as of 01/23/2025) Resolved Problems Problem Noted Date Diagnosed Date Resolved Date Kidney disease, chronic, sta ge III (GFR 30-59 ml/min) 08/27/2020 09/27/2020 Overview: Per CKD protocol PMR (polymyalgia rheumatica) 06/26/2020 01/21/2023 Hypertensive kidney disease with chronic kidney disease stage III 01/06/2019 08/21/2020 HTN, goal below 140/90 05/14/201511/13 Hypertension goal BP (blood pressure) < 140/80 11/14/2014 05/14/2015 HTN, goal below 130/80 11/04/201211/14 Kidney disease, chronic, sta ge III (GFR 30-59 ml/min) 05/06/2012 01/25/2019 Dyslipidemia, goal LDL below 160 10/31/2009 05/06/2012 Dyslipidemia, goal to be determined 10/23/2009 10/31/2009 Overview (10/23/2009): Per Lipid Taxonomy. HTN, goal below 140/90 09/21/200911/04 Overview (09/21/2009): Modified per HTN Taxonomy. Vertigo 09/20/2008 09/21/2008 ACTIVE CASE MANAGEMENT Daysi Ramos RN 09/01/2008 09/02/2010 Overview (06/04/2010): Corns and callosities 05/05/20072007 ADVANCE DIRECTIVE INFORMATION 11/05/2005 01/12/2019 Overview (11/05/2005): No, Advance Directive brochure offered , patient declined. Orthostatic hypotension 10/15/200404/2008 Calculus of gallbladder with out mention of cholecystitis or obstruction 08/08/2003 02/15/2008 Malignant neoplasm of skin of parts of face 12/03/2000 06/16/2018 Overview (02/07/2016): ICD-10 update of inactive term BENIGN HYPERTENSION 09/21/20 09 Overview (09/21/2009): Modified per HTN Taxonomy. FX ANKLE NOS-CLOSED 02/15/20 08 LOC PRIM [id number] 10/18 Other forms of retinal detachment(361.89) 07/26/2018 Other cataract 07/07/2017 Disorder of bone and cartilage 05/05/2012 Mixed dyslipidemia 9 Overview (10/23/2009): Per Lipid Taxonomy. Iatrogenic pulmonary embolism and infarction 11/22/2008 documented as of this encounter (statuses as of 01/23/2025) Immunizations Name Administration Dates Next Due COVID-19 mRNA, LNP-s, No Pre serve, 2-Dose Series (Moderna) 01/05/2021,12/14/2020 COVID-19, mRNA, LNP-s, PF, B ooster, 100mcg/0.5mg (Moderna) 09/23/2021 Pneumococcal Conjugate Vacc, 13 Valent (Prevnar) 01/15/2018 Seasonal Influenza, PF, 6 M & above, IM , (FluLaval or Fluzone) 09/12/2019 TD - Tetanus/Diptheria (ADULT) 11/16/2000 documented as of this encounter Social History Tobacco Use Types Packs/Day Years Used Date Smoking Tobacco: Never Passive Smoke Exposure: Past Smokeless Tobacco: Never Comments:Passive smoke expos ure as child Alcohol Use Standard Drinks/Week Comments No 0 (1 standard drink = 0.6 oz pur e alcohol) Rarely AUDIT-C Answer Date Recorded Frequency of Alcohol Consumption Never 01/12/2019 Average Number of Drinks Not on file 019 Frequency of Binge Drinking Not on file 12/18 PHQ-2 Answer Date Recorded PHQ-2 Score 0 10/29/2018 Hunger Vital Sign Answer Date Recorded Worried About Running Out of Food in the Last Ye ar Never true 12/16/2019 Ran Out of Food in the Last Year Never true 12/16/2019 Comments No Sex and Gender Information Value Date Recorded Sex Assigned at Not on file Legal Sex Female 5:27 AM EST Gender Identity Not on file Sexual Orientation Not on file 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 Not on file Not on file documented as of this encounter Progress Notes * Jackeline Sultana RPh - 01/23/2025 2:11 PM EDT Medication Therapy Disease Management - Anticoagulation Patient: Anne-Marie Blanco | : 1935 Subjective Patient-Reported Symptoms: Patient Findings Negatives: Signs/symptoms of thrombosis, Signs/symptoms of bleeding, Change in health, Change in alcohol use, Change in activity, Upcoming invasive procedure, Missed doses, Extra doses, Change in medications, Change in diet/appetite, Bruising Objective Current Warfarin Dose As of 01/23/2025 Warfarin maintenance plan: 5 mg (5 mg x 1) every Tue, Marline, Sat; 2.5 mg (5 mg x 0.5) all other days INR Result As of 01/23/2025 INR goal: 2.0-3.0 INR used for dosin.1 (01/23/2025) Assessment & Plan Warfarin Plan As of 01/23/2025 Full warfarin instructions: 5 mg every Tue, Marline, Sat; 2.5 mg all other days No change documented: Jackeline Sultana RPh Next INR check: 03/06/2025 Repeat PT/INR in 6 week(s) Weekly dose: not changed Additional Dosing Information: I spent a total of 10-19 minutes (exact time 10 mins) on the date of service in preparation, delivery, and documentation of the care provided to Anne-Marie Blanco excluding any time spent in the performance of separately billed services or time spent by another provider/QHP. Jackeline Sultana RPh Clinical Pharmacist 01/23/2025, 2:11 PM documented in this encounter Plan of Treatment Upcoming Encounters Date Type Department Care Team (Late st Contact Info) Description 03/06/2025 1:00 PM EDT Anticoagulation Pharmacy, [address] [place] [address] [place] [address] 06/13/2025 1:00 PM EDT Office Visit [address] [phone] Clau Lucas [address] [place] [address] 06/30/2025 2:00 PM EDT Office Visit Nephrology, [facility] [address] [place], [place] [address] Samanta Bonner MD [address] [place], [place] [address] 12/13/2025 2:30 PM EST Office Visit [address] [phone] Elo Olvera [address] [place] [address] Health Maintenance Due Date Last Done Comments Zoster Vaccines (1 of 2) 1985 DTap/Tdap Vaccines (1 - Tdap) 11/17/2000 11/16/2000 Adult Wellness Visit 2001 DXA Scan 04/29/2019 04/29/2012, 05/03/2008, 10/18/2004 Depression Screening 10/29/2019 10/29/2018 COVID-19 Vaccine ( season) 2024 09/23/2021, 01/05/2021, 12/14/2020 Influenza Vaccine (FLU shot) (#1) 2024 09/12/2019, 09/12/2019 CKD PHOS USE SMARTSET 91519 04/26/202504/16, 08/21/2023, 01/21/2023, Additional history exists Albumin/Creatinine Ratio 12/16/2025 025, 08/21/2023, 01/21/2022, Additional history exists CKD HGB USE SMARTSET 19072 12/16/202512/16, 09/18/2023, 09/01/2022, Additional history exists Hepatitis B Vaccine Completed 08/30/1994, 04/30/1994, 03/30/1994 Pneumococcal Vaccine: 50+ Years Completed 01/15/2018, 04/15/2002 HPV (Gardasil) Vaccine Aged Out No lo nger eligible based on patient's age to complete this topic MENINGOCOCCAL (MENACTRA/MENVEO) Aged Out No longer eligible based on patient's age to complete this topic Meningitis B Vaccine (Bexsero/Trumemba) Aged Out No longer eligible based on patient's age to complete this topic documented as of this encounter Medical Devices Not on filedocumented as of this encounter Procedures Procedure Name Priority Date/Time Associated Diagnosis Comments INR FINGERSTICK, POINT OF CARE STAT 01/23/2025 2:13 PM EDT History of pulmonary embolism COAGULATION DISORDER ACQUIRED COAGULATN DEFECT Anticoagulation management encounter documented in this encounter Results * INR FINGERSTICK, POINT OF CARE (01/23/2025 2:13 PM EDT) Fingerstick INR 2.1 INR 2:18 PM EDT [facility]00 Blood 01/23/2025 2:13 PM EDT 01/23/2025 2:18 PM EDT Narrative [facility] - 01/23/2025 2:18 PM EDT Therapeutic ranges for non-operative patients: Prophylaxsis/treatment of DVT: (Range:2.0-3.0) Treatment of pulmonary embolism:(Range:2.0-3.0) Prevention of systemic embolism from: -tissue heart valves -acute myocardial infarction -valvular heart disease -atrial fibrillation (Range: 2.0-3.0) Mechanical prosthetic valves: (Range: 2.5-3.5) Opal Rangel [facility] LAB POINT OF CARE TEST DOCKED DEVICE UNSOLICITED RESULTS Final Result [facility] [place] [id number] documented in this encounter Visit Diagnoses Diagnosis Anticoagulation management encounter- Primary Encounter for therapeutic drug monitoring History of pulmonary embolism Personal history of pulmonary embolism COAGULATION DISORDER ACQUIRED COAGULATN DEFECT Acquired coagulation factor deficiency documented in this encounter Advance Directives * Full Code (Latest Code Status on File) Date Activated Date Inactivated Comments 08/26/2008 5:27 PM 08/31/2008 9:[address] Commissioner Relationship Specialty Start Date End Date Elo Olvera DO [address] [place] [address] [place] [phone] PCP - General Internal Medicine 01/05/19 documented as of this encounter"
--- OUTSIDE RECORDS SUMMARY | 2025-02-25 00:01 | External Medical Summary | Summary of Care ---
Author Name Unknown Organization [facility] Address [address] [facility] [place] [address] Phone [phone] Care Team Providers Care Deployment Engineer Name Role Phone Elo Olvera DO Primary Care Provider Reason for Visit * Reason Onset Date Comments Medication Refill 01/25/2025 Encounter Details Date Type Department Care Team (Late st Contact Info) Description 01/25/2025 Refill Family Medicine [address] [place] [phone] Elo Olvera DO [address] [place] [address] [place] [address] History of pulmonary embolism; Acquired coagulation factor deficiency (HCC); Anticoagulation management encounter; skilled nursing current use of anticoagulant therapy; Prothrombin gene mutation (HCC); COAGULATION DISORDER ACQUIRED COAGULATN DEFECT Allergies Active Allergy Reactions Criticality Noted Date Comments Influenza Vaccines 01/21/2023 Penicillins 08/08/2016 Hives documented as of this encounter (statuses as of 01/25/2025) Medications ECOTRIN LOW STRENGTH 81 MG PO TBECIndications: Other pulmonary embolism and infarction One pill by mouth once a day 100 Tab 5 10/30/20 11 Active Additional Information Patient taking differently:Oral,Takes at night, Reported on 01/05/2025 Omeprazole 20 MG Oral Capsule Delayed Release (PriLOSEC) 1 Capsule. 06/03/20 22 Active Vitamin D3 25 MCG (1000 UT) Oral Capsule Take 1 Capsule by mouth daily. 1 Capsule 08/28/20 23 Active Simvastatin 20 MG Oral Tablet (Zocor)Indicatio ns:Mixed dyslipidemia TAKE 1 TABLET BY MOUTH EVERYDAY AT BEDTIME 90 Tablet 3 06/06/20 24 Active Vitamin B-12 100 MCG Oral Tablet (vitamin B-12) Take 1 Tablet by mouth in the morning. Active amLODIPine Besylate 5 MG Oral Tablet (Norvasc)Indicat ions:HTN, goal below 140/90 Take 1 Tablet by mouth in the morning. 90 Tablet 3 08/29/20 24 Active hydroCHLOROthiaz ashwini 12.5 MG Oral Tablet Take 1 Tablet by mouth in the morning. 90 Tablet 3 09/02/20 24 Active Losartan Potassium 50 MG Oral Tablet (Cozaar) TAKE 1 TABLET BY MOUTH EVERY DAY IN THE MORNING 90 Tablet 3 11/14/20 24 Active Rollator Ultra-LightIndic ations:Ambulator y dysfunction 1 Rollator walker with brakes. Dx. Ambulatory dysfunction, low back pain 1 Each 12/13/19 25 Active Warfarin Sodium 5 MG Oral Tablet (Coumadin)Indica tions:History of pulmonary embolism,Acquire d coagulation factor deficiency (HCC),Anticoagul ation management encounter,skilled nursing current use of anticoagulant therapy,Prothrom bin gene mutation (HCC),Acquired coagulation factor deficiency (HCC) Take 2.5 mg (1/2 tablet) to 5 mg (1 tablet) by mouth daily as directed by anticoagulation clinic 90 Tablet 3 01/26/20 25 Active Warfarin Sodium 5 MG Oral Tablet (Coumadin)Indica tions:History of pulmonary embolism,Acquire d coagulation factor deficiency (HCC),Anticoagul ation management encounter,termination 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 Orthostatic hypotension 10/15/2004 11/0 04/2008 Calculus of gallbladder with out mention of cholecystitis or obstruction 08/08/2003 02/15/2008 Malignant neoplasm of skin of parts of face 12/03/2000 06/16/2018 Overview (02/07/2016): ICD-10 update of inactive term BENIGN HYPERTENSION 09/21/20 09 Overview (09/21/2009): Modified per HTN Taxonomy. FX ANKLE NOS-CLOSED 02/15/20 08 LOC PRIM [id number] 10/18 Other forms of retinal detachment(361.89) 07/26/2018 Other cataract 07/07/2017 Disorder of bone and cartilage 05/05/2012 Mixed dyslipidemia 9 Overview (10/23/2009): Per Lipid Taxonomy. Iatrogenic pulmonary embolism and infarction 11/22/2008 documented as of this encounter (statuses as of 01/25/2025) Immunizations Name Administration Dates Next Due COVID-19 [...] on file documented as of this encounter Miscellaneous Notes * Telephone Encounter - Shad Perez MD - 01/25/2025 1:42 PM EDT Signed Prescriptions: Disp Refills Warfarin Sodium 5 MG Oral Tablet (Coumadin)90 Tab*3 Sig: Take 2.5 mg (1/2 tablet) to 5 mg (1 tablet) by mouth daily as directed by anticoagulation clinic Authorizing Provider: SHAD PEREZ * Telephone Encounter - Mackenzie Cleaning CMA - 01/25/2025 1:03 PM EDTPending Prescriptions: Disp Refills Warfarin Sodium 5 MG Oral Tablet (Coumadin)90 Tab*3 Sig: Take 2.5 mg (1/2 tablet) to 5 mg (1 tablet) by mouth daily as directed by anticoagulation clinic * Telephone Encounter - Glo Cunningham OSA - 01/25/2025 10:10 AM EDT Did you pend patient's preferred pharmacy and medication before forwarding?yes Pharmacy: [id number] [id number] [facility] Pending Prescriptions: Disp Refills Warfarin Sodium 5 MG Oral Tablet (Coumadi*90 Tab*3 Sig: Take 2.5 mg (1/2 tablet) to 5 mg (1 tablet) by mouth daily as directed by anticoagulation clinic Last Visit: 12/13/2024 (in office), Visit date not found (telemedicine) Next Visit: 06/13/2025 If no future appointments scheduled, and last appointment is greater than a year ago, please schedule patient for a follow-up appointment Last date the medication was ordered: 01/18/2024 Is this request for a controlled substance?No Urine Drug Screen:No results found. However, due to the size of the patient record, not all encounters were searched. Please check Results Review for a complete set of results. Patient Phone Numbers Labs: Lab Results Component Value Date/Time CREAT 1.6 (H) 12/16/2024 11:33 AM CREAT 1.3 (H) 09/13/2020 09:07 AM POTASSIUM 4.2 12/16/2024 11:33 AM POTASSIUM 3.8 09/13/2020 09:07 AM TSH 2.00 11/15/2013 08:15 AM LDL 78 12/16/2024 11:33 AM LDL 84 07/11/2020 08:30 AM LDL NOT APPLICABLE 07/11/2020 08:30 AM ALT 14 04/26/2024 03:21 PM ALT 15 07/11/2020 08:30 AM documented in this encounter Plan of Treatment Upcoming Encounters Date Type Department Care Team (Late st Contact Info) Description 03/06/2025 1:00 PM EDT Anticoagulation Pharmacy, [address] [place] [address] [phone] [place] [address] [place] [address] 06/13/2025 1:00 PM EDT Office Visit [address] [phone] Clau Lucas, [address] [place] [address] 06/30/2025 2:00 PM EDT Office Visit Nephrology, [facility] [address] [facility] [place], [place] [address] Samanta Bonner MD [address] [facility] [place] [address] 12/13/2025 2:30 PM EST Office Visit [address] [phone] Elo Olvera, [address] [place] [address] Health Maintenance Due Date Last Done Comments Zoster Vaccines (1 of 2) 1985 DTap/Tdap Vaccines (1 - Tdap) 11/17/2000 11/16/2000 Adult Wellness Visit 2001 DXA Scan 04/29/2019 04/29/2012, 05/0 03/2008, 10/18/2004 Depression Screening 10/29/2019 10/29/2018 COVID-19 Vaccine ( season) 2024 09/23/2021, 01/05/2021, 12/14/2020 Influenza Vaccine (FLU shot) (#1) 2024 09/12/2019, 09/12/2019 CKD PHOS USE SMARTSET 89849 04/26/202504/16, 08/21/2023, 01/21/2023, Additional history exists Albumin/Creatinine Ratio 12/16/2025 025, 08/21/2023, 01/21/2022, Additional history exists CKD HGB USE SMARTSET 17077 12/16/202512/16, 09/18/2023, 09/01/2022, Additional history exists Hepatitis [...] Not on filedocumented as of this encounter Visit Diagnoses Diagnosis History of pulmonary embolism Personal history of pulmonary embolism COAGULATION DISORDER ACQUIRED COAGULATN DEFECT Acquired coagulation factor deficiency Anticoagulation management encounter Encounter for therapeutic drug monitoring skilled nursing current use of anticoagulant therapy Prothrombin gene mutation (HCC) Primary hypercoagulable state documented in this encounter Advance Directives * Full Code (Latest Code Status on File) Date Activated Date Inactivated Comments 08/26/2008 5:27 PM 08/31/2008 9:03 PM Care Teams Deployment Engineer Relationship Specialty Start Date End Date Elo Olvera DO [address] [place] [address] [place] [address] PCP - General Internal Medicine 01/05/19 documented as of this encounter
--- OUTSIDE RECORDS SUMMARY | 2025-02-25 00:01 | External Medical Summary ---
Author Name Unknown Address Unknown Organization : Laboratory Report Ordering Provider Test Date Status EDYTA BALBUENA 01/23/2025 14:13:25 Final Therapeutic ranges for non-o perative patients:
Prophylaxsis/treatment of DVT: (Range:2.0-3.0)
Treatment of pulmonary embolism:(Range:2.0-3.0)
Prevention of systemic embolism from:
-tissue heart valves
-acute myocardial infarction
-valvular heart disease
-atrial fibrillation
(Range: 2.0-3.0)
Mechanical prosthetic valves: (Range: 2.5-3.5) Observation Date Value Abnormality Reference (Units ) Status INR in Capillary blood by Coagulation assay 01/23/2025 14:13:25 2.1 (INR) Final Performing Location
--- OUTSIDE RECORDS SUMMARY | 2025-02-25 00:01 | External Medical Summary | Summary of Care ---
Author Name Unknown Organization [facility] Address [address] [facility] [address] Phone [phone] Care Team Providers Care Line Mechanic Name Role Phone Renny Rico Primary Care Provider Reason for Visit * Reason Comments Chronic Kidney Disease (CKD) Encounter Details Date Type Department Care Team (Latest Contact Info) Description 01/05/2025 3:20 PM EST Office Visit Nephrology [address] [place] [address] Samanta Bonner 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 Iatrogenic pulmonary embolism and infarction 11/22/2008 documented as of this encounter (statuses as of 01/06/2025) Immunizations Name Administration Dates Next Due COVID-19 [...] on file documented as of this encounter Last Filed Vital Signs Vital Sign Reading Time Taken Comments Blood Pressure 137/71 01/05/2025 3:25 PM EST Pulse 82 01/05/2025 3:25 PM EST Temperature 35.9 °C (96.6 °F) 01/05/2025 3:25 PM ES T Respiratory Rate 18 01/05/2025 3:25 PM EST Oxygen Saturation 97% 01/05/2025 3:25 PM EST Inhaled Oxygen Concentration - - Weight - - Height - - Body Mass Index - - documented in this encounter Patient Instructions * Patient Instructions* Samanta Bonner MD - 01/05/2025 3:49 PM EST -no medication changes today >> continue D3 current dose -avoid medicines like aleve, advil, ibuprofen, aspirin more than 81 mg daily and other NSAIDS whichare not good for kidney patients. Take only tylenol (acetaminophen) up to 2000 mg daily as needed for pain or as directed by your primary care provider. -stay as active as you can safely be -labs before next kidney visit > in June documented in this encounter Progress Notes * Samanta Bonner MD - 01/05/2025 3:01 PM EST NEPHROLOGY CLINIC NOTE Nephrology [address] [place] [address] 01/05/2025, 3:02 PM Patient Name: Anne-Marie Blanco BACKGROUND: 89 year old female presents for f/u of nonproteinuric CKD3B from age HTN. 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 PMR diagnosed in fall 2019 about 10 days after flu shot after she presented w/ diffuse myalgias andelevated ESR. 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 drinks 8 oz coffee daily; Milk drinker. No soda. Does attempt to drink more Home blood pressure checks: occasional upper arm cuff History of stones: no Family history of CKD or ESRD: no NSAID use: no Herbals/supplements: Nothing MRI w/ severe lumbar stenosis >> can still walk; takes a break if pain. 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 TODAY 01/05/2025: No acute interval events clniically. Wondering about LEO labs. Gearing up for baseball season for sons/gr grandsons. Also granddaguther for upcoming black tie wedding. Playing cards.Lives independently. REVIEW OF SYSTEMS General: No fatigue, No change in weight Respiratory: No wheezing, No shortness of breath but does note some sinus congestion / rhinorrhea Cardiovascular:No chest pain, No palpitations Gastrointestinal: No nausea, vomiting, diarrhea No blood in stools No abdominal pain Urinary: No dysuira, No hematuria. No flank pain Musculoskeletal: No edema Skin: No itching No orhtostatic or presync sx; no falls Current Outpatient Medications Medication Sig Dispense Refill ECOTRIN LOW STRENGTH 81 MG PO TBEC One pill by mouth once a day (Patient taking differently: Take by mouth. Takes at night) 100 Tab 5 Omeprazole 20 MG Oral Capsule Delayed Release (PriLOSEC) 1 Capsule. Vitamin D3 25 MCG (1000 UT) Oral Capsule Take 1 Capsule by mouth daily. 1 Capsule 0 Warfarin Sodium 5 MG Oral Tablet (Coumadin) Take 2.5 mg (1/2 tablet) to 5 mg (1 tablet) by mouth daily as directed by anticoagulation clinic 90 Tablet 3 Simvastatin 20 MG Oral Tablet (Zocor) TAKE 1 TABLET BY MOUTH EVERYDAY AT BEDTIME 90 Tablet 3 Vitamin B-12 100 MCG Oral Tablet (vitamin B-12) Take 1 Tablet by mouth in the morning. amLODIPine Besylate 5 MG Oral Tablet (Norvasc) Take 1 Tablet by mouth in the morning. 90 Tablet 3 hydroCHLOROthiazide 12.5 MG Oral Tablet Take 1 Tablet by mouth in the morning. 90 Tablet 3 Losartan Potassium 50 MG Oral Tablet (Cozaar) TAKE 1 TABLET BY MOUTH EVERY DAY IN THE MORNING 90 Tablet 3 Rollator Ultra-Light 1 Rollator walker with brakes. Dx. Ambulatory dysfunction, low back pain 1 Each 0 No current facility-administered medications for this visit. Review of patient's allergies indicates: Allergen Reactions Influenza Vaccines Penicillins Hives PHYSICAL EXAMINATION: BP Readings from Last 6 Encounters: 01/05/25 137/71 12/13/24 132/68 06/21/24 124/57 04/26/24 138/72 12/14/23 136/62 09/18/23 146/60 Wt Readings from Last 6 Encounters: 06/21/24 88.1 kg (194 lb 4.8 oz) 12/14/23 88 kg (194 lb) 07/25/22 88.9 kg (196 lb) 04/07/22 90.7 kg (200 lb) 01/21/22 92.1 kg (203 lb) 09/16/21 92.1 kg (203 lb) Pulse Readings from Last 6 Encounters: 01/05/25 82 12/13/24 88 06/21/24 78 04/26/24 68 12/14/23 82 09/18/23 96 NAD, oriented x 3, ambulatory w/o asst but stiffly Normocephalic, atraumatic, eomi nonicteric sclerae MMM Supple neck RRR w/o g/r; SM soft; no edema CTAB w/ reasonable air mvt NT abd, +BS, soft No cyanosis or clubbing No rash No tremor, focal or global weakness; fluent speech, excellent historian LABS: Recent Labs Units 12/16/24 1133 04/26/24 1521 09/18/23 1552 08/21/23 1524 SODIUM - [facility] mmol/L 141 138 140 138 POTASSIUM - [facility] mmol/L 4.2 4.4 4.3 4.5 CHLORIDE - [facility] mmol/L 106 100 105 104 CO2 - [facility] mmol/L 24 23 26 24 ESTIMATED GLOMERULAR FILTRATION RATE - [facility] mL/min 32* 30* 30* 29* BUN - [facility] mg/dL 29* 29* 30* 29* CREATININE - [facility] mg/dL 1.6* 1.6* 1.6* 1.7* Latest Ref Rng 07/11/2020 09/13/2020 06/05/2021 01/21/2022 06/13/2022 07/15/2022 09/01/2022 NEPH-FLOW Cr 0.5 - 1.0 mg/dL 1.3 (H) 1.3 (H) 1.3 (H) 1.5 (H) 1.6 (H) 1.3 (H) 1.9 (H) eGFR >=60 mL/min 37.5 (L) 35 (L) 30 (L) 41 (L) 26 (L) eGFR >60 36.6 (L) 39.5 (L) Latest Ref Rng 09/10/2022 09/30/2022 11/26/2022 01/21/2023 NEPH-FLOW Cr 0.5 - 1.0 mg/dL 1.7 (H) 1.3 (H) 1.9 (H) 1.5 (H) eGFR >=60 mL/min 29 (L) 39 (L) 25 (L) 35 (L) eGFR >60 Recent Labs Units 12/16/24 1133 09/18/23 1552 HGB g/dL 11.7* 12.6 Recent Labs Units 12/16/24 1133 04/26/24 1521 12/18/23 1325 09/18/23 1552 08/21/23 1524 01/21/23 1428 CALCIUM - [facility] mg/dL 9.6 9.9 -- 9.5 9.5 9.8 PHOSPHORUS - [facility] mg/dL -- 2.6 -- -- 2.4* 2.8 25-HYDROXY VITAMIN D - [facility] ng/mL -- -- 42 -- 39 -- PTH - [facility] pg/mL 114* -- 115* -- 141* -- Latest Reference Range & Units 11/15/14 09:32 07/15/17 08:17 10/29/18 11:18 06/05/21 12:52 01/21/22 14:21 11/26/22 08:37 08/21/23 15:24 12/18/23 13:25 PTH 15 - 65 pg/mL 107 (H) 109 (H) 88 (H) 93 (H) 109 (H) 121 (H) 141 (H) 115 (H) Recent Labs Units 12/16/24 1133 08/21/23 1524 ALBUMIN / CREATININE RATIO, URINE - [facility] mg/g Creat 27 <29 ASSESSMENT AND PLAN: Stage 3b chronic kidney disease (HCC) (Primary) - NEPHROLOGY FOLLOW UP APPT (DEPARTMENT USE ONLY); Future; Expected date: 07/05/2025 HTN, goal below 140/90 Hyperparathyroidism, secondary renal (HCC) Vitamin D insufficiency 12/12/24 labs show eGFR 32, stable with accepta ble chemistries and no albuminuria. -cont ARB and statin -no SGLT2i indication HTN a bit higher than routine target > given her age; no sx currently and as long as no proteinuria will not lower; did d/w her and she agrees -cont amlo, hctz, losartan current doses -lifestyle measures as tolerated Secondary HPTH; no h/o stones and no severe osteoporosis; ca normal > late Nov levels stable compared to Dec 2023 -D3 to continue same dose Patient Instructions -no medication changes today >> continue D3 current dose -avoid medicines like aleve, advil, ibuprofen, aspirin more than 81 mg daily and other NSAIDS whichare not good for kidney patients. Take only tylenol (acetaminophen) up to 2000 mg daily as needed for pain or as directed by your primary care provider. -stay as active as you can safely be -labs before next kidney visit > in June Samanta Bonner MD Nephrology [address] [place] [address] CC: REF: ROB MARCUS [address] [place] [address] [place] [phone] (office) [phone] (fax) PCP: RENNY RICO [address] [place] [address] [place] [address] [phone] This chart was completed in part utilizing [employer] Speech Voice Recognition Software. Randomword insertions, pronoun errors, and incomplete sentences are an occasional consequence of this system due to software limitations, and ambient noise. Any questions or concerns about the content, text, or information contained within the body of this dictation should be directly addressed to the provider for clarification. documented in this encounter Nursing Notes * Sada Stevens RN - 01/05/2025 3:27 PM EST Follow up visit today. No recent illness or hospital stays. Monitors blood pressures at home. documented in this encounter Plan of Treatment Upcoming Encounters Date Type Department Care Team (Late st Contact Info) Description 01/23/2025 2:10 PM EDT Anticoagulation Pharmacy, [address] [place] [address] [place] [address] 06/13/2025 1:00 PM EDT Office [place] [address] [place] [phone] Clau Lucas CRNP [address] [place] [address] [place] [address] 06/30/2025 2:00 PM EDT Office Visit Nephrology, [address] [place] [address] Samanta Bonner MD [address] [facility] [place] [address] 12/13/2025 2:30 PM EST Office Visit [address] [place] [phone] Renny Rico, [address] [place] [address] Health Maintenance Due Date Last Done Comments Zoster Vaccines (1 of 2) 1985 DTap/Tdap Vaccines (1 - Tdap) 11/17/2000 11/16/2000 Adult Wellness Visit 2001 DXA Scan 04/29/2019 04/29/2012, 03/2008, 10/18/2004 Depression Screening 10/29/2019 10/29/2018 COVID-19 Vaccine ( season) 2024 09/23/2021, 01/05/2021, 12/14/2020 Influenza Vaccine (FLU shot) (#1) 2024 09/12/2019, 09/12/2019 CKD PHOS USE SMARTSET 81875 04/26/202504/16, 08/21/2023, 01/21/2023, Additional history exists Albumin/Creatinine Ratio 12/16/2025 025, 08/21/2023, 01/21/2022, Additional history exists CKD HGB USE SMARTSET 87442 12/16/202512/16, 09/18/2023, 09/01/2022, Additional history exists Hepatitis [...] as of this encounter Visit Diagnoses Diagnosis Stage 3b chronic kidney disease (HCC)- Primary HTN, goal below 140/90 Unspecified essential hypertension Hyperparathyroidism, secondary renal (HCC) Secondary hyperparathyroidism (of renal origin) Vitamin D insufficiency Unspecified vitamin D deficiency documented in this encounter Advance Directives * Full Code (Latest Code Status on File) Date Activated Date Inactivated Comments 08/26/2008 5:27 PM 08/31/2008 9:03 PM Care Teams Line Mechanic Relationship Specialty Start Date End Date Renny Rico DO [address] [place] [address] [place] [phone] PCP - General Internal Medicine 01/05/19 documented as of this encounter
--- OUTSIDE RECORDS SUMMARY | 2025-02-25 00:02 | External Medical Summary | Summary of Care ---
Author Name Unknown Organization [facility] Address [address] [facility] [place] [address] Phone [phone] Care Team Providers Care Manufacturing Technician Name Role Phone Elo Olvera DO Primary Care Provider [phone] Reason for Visit * Reason Onset Date Comments Advice 12/26/2024 Encounter Details Date Type Department Care Team (Late st Contact Info) Description 12/26/2024 Telephone Family Medicine [address] [place] [phone] Elo Olvera DO [address] [place] [address] [place] [address] Advice Allergies Active Allergy Reactions Criticality Noted Date Comments Influenza Vaccines 01/21/2023 Penicillins 08/08/2016 Hives documented as of this encounter (statuses as of 12/28/2024) Medications ECOTRIN LOW STRENGTH 81 MG PO TBECIndications:O ther pulmonary embolism and infarction One pill by mouth once a day 100 Tab 5 10/30/20 11 Active Additional Information Patient taking differently:Oral,Takes at night, Reported on 12/13/2024 Omeprazole 20 MG Oral Capsule Delayed Release (PriLOSEC) 1 Capsule. 06/03/20 22 Active Vitamin D3 25 MCG (1000 UT) Oral Capsule Take 1 Capsule by mouth daily. 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 Iatrogenic pulmonary embolism and infarction 11/22/2008 documented as of this encounter (statuses as of 12/28/2024) Immunizations Name Administration Dates Next Due COVID-19 [...] encounter Miscellaneous Notes * Telephone Encounter - Elo Olvera DO - 12/27/2024 4:12 PM EST Message sent to patient. * Telephone Encounter - Nathalia Evangelista OSA - 12/26/2024 12:59 PM EST Pt is calling in following up on her labs from 12/16/2024 Looking for a Evolve IP message in regards to how the labs were Please advise documented in this encounter Plan of Treatment Upcoming Encounters Date Type Department Care Team (Late st Contact Info) Description 01/05/2025 3:20 PM EST Office Visit Nephrology [address] [place] [address] Samanta Bonner MD 200 [facility] [place] [address] 01/23/2025 2:10 PM EDT Anticoagulation Pharmacy, [address] [place] [address] [place] [address] 06/13/2025 1:00 PM EDT Office Visit [address] Medicine [address] [phone] Clau Lucas [address] [place] [address] 12/13/2025 2:30 PM EST Office Visit Family Medicine [address] [phone] Elo Olvera DO [address] [place] [address] [place] [address] Health Maintenance Due Date Last Done Comments Zoster Vaccines (1 of 2) 1985 DTap/Tdap Vaccines (1 - Tdap) 11/17/2000 11/16/2000 Adult Wellness Visit 2001 DXA Scan 04/29/2019 04/29/2012, 05/0 03/2008, 10/18/2004 Depression Screening 10/29/2019 10/29/2018 COVID-19 Vaccine ( season) 2024 09/23/2021, 01/05/2021, 12/14/2020 Influenza Vaccine (FLU shot) (#1) 2024 09/12/2019, 09/12/2019 CKD PHOS USE SMARTSET 71743 04/26/202504/16, 08/21/2023, 01/21/2023, Additional history exists Albumin/Creatinine Ratio 12/16/2025 025, 08/21/2023, 01/21/2022, Additional history exists CKD HGB USE SMARTSET 19814 12/16/202512/16, 09/18/2023, 09/01/2022, Additional history exists Hepatitis [...] Not on filedocumented as of this encounter Advance Directives * Full Code (Latest Code Status on File) Date Activated Date Inactivated Comments 08/26/2008 5:27 PM 08/31/2008 9:03 PM Care Teams Manufacturing Technician Relationship Specialty Start Date End Date Elo Olvera DO [address] [place] [address] [place] [address] PCP - General Internal Medicine 01/05/19 documented as of this encounter
--- OUTSIDE RECORDS SUMMARY | 2025-02-25 00:02 | External Medical Summary ---
Author Name Unknown Address Unknown Organization [id number]:LAB[facility]ATORY [facility] [place] - [address] [facility] [address] Laboratory Report Ordering Provider Test Date Status JACKY LAWSON 12/16/2024 11:33:30 Final Observation Date Value Abnormality Reference (Units ) Status Triglyceride 12/16/2024 11:33:30 128 <=174 ( mg/dL) Final Triglyceride Reference Range s (mg/dL):
<150 Acceptable
150-174 Borderline high
175-499 High
>=500 Very high Cholesterol 12/16/2024 11:33:30 156 <200 (mg /dL) Final Total Cholesterol Reference Ranges (mg/dL):
<200 Desirable
200-239 Borderline high
>=240 High HDL 12/16/2024 11:33:30 52 >49 (mg/dL ) Final HDL Cholesterol Reference Ra nges (mg/dL):
>=60 High (Desirable)
<50 Low (Undesirable) For Females
<40 Low (Undesirable) For Males NON-HDL CHOLESTEROL 12/16/2024 11:33:30 104 <=159 (mg/dL) Final Non-HDL Cholesterol Referenc e Range (mg/dL):
<100 Target level for high risk ASCVD patient
<130 Optimal for general population
130-159 Near optimal for general population
160-189 Borderline High
190-219 High
>=220 Very High LDL, (calculated) 12/16/2024 11:33:30 78 <= 129 (mg/dL) Final LDL Cholesterol Reference Ra nges (mg/dL):
<70 Target level for high risk ASCVD patient
<100 Optimal for general population
100-129 Near optimal for general population
130-159 Borderline high
160-189 High
>=190 Very high Performing Location LABORATORY [facility] [place] - [address] [facility] [address]
--- OUTSIDE RECORDS SUMMARY | 2025-02-25 00:02 | External Medical Summary | Summary of Care ---
Author Name Unknown Organization [facility] Address [address] [facility] [place] [address] Phone [phone] Care Team Providers Care Industrial Spray Painter Name Role Phone Elo Olvera Primary Care Provider Encounter Details Date Type Department Care Team (Late st Contact Info) Description 12/05/2024 Population Health External Data Unspecified Department Allergies Active Allergy Reactions Criticality Noted Date Comments Influenza Vaccines 01/21/2023 Penicillins 08/08/2016 Hives documented as of this encounter (statuses as of 12/05/2024) Medications ECOTRIN LOW STRENGTH 81 MG PO TBECIndications:O ther pulmonary embolism and infarction One pill by mouth once a day 100 Tab 5 10/30/20 11 Active Additional Information Patient taking differently:Oral,Takes at night, Reported on 12/14/2023 Omeprazole 20 MG Oral Capsule Delayed Release (PriLOSEC) 1 Capsule. 06/03/20 22 Active Vitamin D3 25 MCG (1000 UT) Oral Capsule Take 1 Capsule by mouth daily. 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 Iatrogenic pulmonary embolism and infarction 11/22/2008 documented as of this encounter (statuses as of 12/05/2024) Immunizations Name Administration Dates Next Due COVID-19 [...] on file documented as of this encounter Plan of Treatment Upcoming Encounters Date Type Department Care Team (Late st Contact Info) Description 12/13/2024 2:00 PM EST Anticoagulation Pharmacy, [address] [place] [address] [place] [address] 12/13/2024 2:30 PM EST Office Visit Family Medicine [address] [place] [phone] [place] [address] 01/05/2025 3:20 PM EST Office Visit Nephrology [address] [place] [address] Samanta Bonner MD [facility] [place] [address] Health Maintenance Due Date Last Done Comments Zoster Vaccines (1 of 2) 1985 DTap/Tdap Vaccines (1 - Tdap) 11/17/2000 11/16/2000 Adult Wellness Visit 2001 DXA Scan 04/29/2019 04/29/2012, 03/2008, 10/18/2004 Depression Screening 10/29/2019 10/29/2018 COVID-19 Vaccine ( season) 2024 09/23/2021, 01/05/2021, 12/14/2020 Influenza Vaccine (FLU shot) (#1) 2024 09/12/2019, 09/12/2019 Albumin/Creatinine Ratio 08/21/2024 023, 01/21/2022, 10/29/2018 CKD HGB USE SMARTSET 95355 09/18/202409/18, 09/01/2022, 09/01/2022, Additional history exists CKD PHOS USE SMARTSET 94515 04/26/202504/16, 08/21/2023, 01/21/2023, Additional history exists Hepatitis B Vaccine Completed [...] 5:27 PM 08/31/2008 9:03 PM Care Teams Industrial Spray Painter Relationship Specialty Start Date End Date Elo Olvera DO [address] [place] [address] [place] [address] PCP - General Internal Medicine 01/05/19 documented as of this encounter
--- OUTSIDE RECORDS SUMMARY | 2025-02-25 00:02 | External Medical Summary ---
Author Name Unknown Address Unknown Organization [id number]:LABORATORY [facility] [place] - [address] [place] [address] Laboratory Report Ordering Provider Test Date Status RENNYRICO 12/16/2024 11:33:30 Final Observation Date Value Abnormality Reference (Units ) Status Vitamin B12 12/16/2024 11:33:30 1853 Above high normal 232-1245 (pg/mL) Final Performing Location LABORATORY [facility] [place] - [address] [place] [address]
--- OUTSIDE RECORDS SUMMARY | 2025-02-25 00:02 | External Medical Summary | Summary of Care ---
Author Name Unknown Organization [facility] Address [address] [facility] [place] [address] Phone [phone] Care Team Providers Care Laundry Superintendent Name Role Phone Elo Olvera Primary Care Provider Reason for Visit * Reason Comments eRx-Medication Refill Encounter Details Date Type Department Care Team (Late st Contact Info) Description 11/12/2024 Refill Nephrology, [place] [address] [facility] [place] [address] Rubens De La Paz MD [address] [facility] [place] [address] Allergies Active Allergy Reactions Criticality Noted Date Comments Influenza Vaccines 01/21/2023 Penicillins 08/08/2016 Hives documented as of this encounter (statuses as of 11/14/2024) Medications ECOTRIN LOW STRENGTH 81 MG PO TBECIndications: Other pulmonary embolism and infarction One pill by mouth once a day 100 Tab 5 011 Active Additional Information Patient taking differently:Oral,Takes at night, Reported on 12/14/2023 Omeprazole 20 MG Oral Capsule Delayed Release (PriLOSEC) 1 Capsule. 022 Active Vitamin D3 25 MCG (1000 UT) Oral Capsule Take 1 Capsule by mouth daily. 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 Active amLODIPine Besylate 5 MG Oral Tablet (Norvasc)Indicat ions:HTN, goal below 140/90 Take 1 Tablet by mouth in the morning. 90 Tablet 3 024 Active hydroCHLOROthiaz ashwini 12.5 MG Oral Tablet Take 1 Tablet by mouth in the morning. 90 Tablet 3 024 Active Losartan Potassium 50 MG Oral Tablet (Cozaar) TAKE 1 TABLET BY MOUTH EVERY DAY IN THE MORNING 90 Tablet 3 024 Active Losartan Potassium 50 MG Oral Tablet (Cozaar) Take 1 Tablet by mouth in the morning. 90 Tablet 3 024 2023 Discontinued documented as of this encounter (statuses as of 11/14/2024) Active Problems Problem Noted Date Diagnosed Date [...] as of this encounter (statuses as of 11/14/2024) Resolved Problems Problem Noted Date Diagnosed Date [...] FX ANKLE NOS-CLOSED 02/15/20 08 LOC PRIM [id number] 10/18 Other forms of retinal detachment(361.89) 07/26/2018 Other cataract 07/07/2017 Disorder of bone and cartilage 05/05/2012 Mixed dyslipidemia 9 Overview (10/23/2009): Per Lipid Taxonomy. Iatrogenic pulmonary embolism and infarction 11/22/2008 documented as of this encounter (statuses as of 11/14/2024) Immunizations Name Administration Dates Next Due COVID-19 [...] encounter Miscellaneous Notes * Telephone Encounter - Rubens De La Paz MD - 11/14/2024 1:01 PM ESTSigned Prescriptions: Disp Refills Losartan Potassium 50 MG Oral Tablet (Coza*90 Tab*3 Sig: TAKE 1 TABLET BY MOUTH EVERY DAY IN THE MORNING Authorizing Provider: RUBENS DE LA PAZ * Telephone Encounter - Sada Stevens RN - 11/14/2024 8:26 AM ESTPending Prescriptions: Disp Refills Losartan Potassium 50 MG Oral Tablet (Coza*90 Tab*3 Sig: TAKE 1 TABLET BY MOUTH EVERY DAY IN THE MORNING * Telephone Encounter - Sada Stevens RN - 11/14/2024 8:23 AM EST Prescription request received from pharmacy pending. Please authorize. Last OV 06/21/24 Next OV 01/05/25 documented in this encounter Plan of Treatment Upcoming Encounters Date Type Department Care Team (Late st Contact Info) Description 12/13/2024 2:00 PM EST Anticoagulation Pharmacy, [address] [place] [address] [place] [address] 12/13/2024 2:30 PM EST Office Visit Family Medicine [address] [place] [phone] [address] [place] [address] 01/05/2025 3:20 PM EST Office Visit Nephrology [address] [place] [address] Rubens De La Paz MD [address] [facility] [place] [address] Health Maintenance Due Date Last Done Comments Zoster Vaccines (1 of 2) 1985 DTap/Tdap Vaccines (1 - Tdap) 11/17/2000 11/16/2000 Adult Wellness Visit 2001 DXA Scan 04/29/2019 04/29/2012, 03/2008, 10/18/2004 Depression Screening 10/29/2019 10/29/2018 COVID-19 Vaccine ( season) 2024 09/23/2021, 01/05/2021, 12/14/2020 Influenza Vaccine (FLU shot) (#1) 2024 09/12/2019, 09/12/2019 Albumin/Creatinine Ratio 08/21/2024 023, 01/21/2022, 10/29/2018 CKD HGB USE SMARTSET 69242 09/18/202409/18, 09/01/2022, 09/01/2022, Additional history exists CKD PHOS USE SMARTSET 65380 04/26/202504/16, 08/21/2023, 01/21/2023, Additional history exists Hepatitis [...] 5:27 PM 08/31/2008 9:03 PM Care Teams Laundry Superintendent Relationship Specialty Start Date End Date Elo Olvera DO [address] [place] [address] [place] [address] PCP - General Internal Medicine 01/05/19 documented as of this encounter
--- OUTSIDE RECORDS SUMMARY | 2025-02-25 00:02 | External Medical Summary | Summary of Care ---
Author Name Unknown Organization [facility] Address [address] [facility] [place] [address] Phone [phone] Care Team Providers Care Apartment Coordinator Name Role Phone Elo Olvera Primary Care Provider Reason for Visit * Reason Comments Outpatient Testing Encounter Details Date Type Department Care Team (Late st Contact Info) Description 12/16/2024 11:30 AM EST Laboratory Laboratory [address] [place] [phone] [place] [address] Mixed dyslipidemia; Stage 3b chronic kidney disease (HCC); USP current use of therapeutic drug Allergies Active Allergy Reactions Criticality Noted Date Comments Influenza Vaccines 01/21/2023 Penicillins 08/08/2016 Hives documented as of this encounter (statuses as of 12/16/2024) Medications ECOTRIN LOW STRENGTH 81 MG PO [...] coagulation factor deficiency (HCC),Anticoagula tion management encounter,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 Iatrogenic pulmonary embolism and infarction 11/22/2008 documented as of this encounter (statuses as of 12/16/2024) Immunizations Name Administration Dates Next Due COVID-19 [...] 01/05/2025 3:20 PM EST Office Visit Nephrology [address] [place] [address] Samanta Bonner MD [address] [place] [address] 01/23/2025 2:10 PM EDT Anticoagulation Pharmacy, [address] [place] [address] [place] [address] 06/13/2025 1:00 PM EDT Office Visit Family Medicine [address] [place] [phone] Clau Lucas [address] [place] [address] 12/13/2025 2:30 PM EST Office Visit Family Medicine [address] [place] [phone] Elo Olvera [address] [place] [address] Pending Results Name Type Priority Associated Diagnoses Date /Time LIPID PANEL WITH DIRECT LDL IF TG IS HIGH Lab Routine Mixed dyslipidemia 12/16/2024 11:33 AM EST BASIC METABOLIC PANEL Lab Routine Stage 3b chronic kidney disease (HCC) 12/16/2024 11:33 AM EST PTH Lab Routine Stage 3b chronic kidney disease (HCC) 12/16/2024 11:33 AM EST VITAMIN B12 Lab Routine USP current use of therapeutic drug 12/16/2024 11:33 AM EST HGB Lab Routine Stage 3b chronic kidney disease (HCC) 12/16/2024 11:33 AM EST ALBUMIN / CREATININE RATIO, URINE Lab Routine Stage 3b chronic kidney disease (HCC) 12/16/2024 11:33 AM EST Health Maintenance Due Date Last Done Comments Zoster Vaccines (1 of 2) 1985 DTap/Tdap Vaccines (1 - Tdap) 11/17/2000 11/16/2000 Adult Wellness Visit 2001 DXA Scan 04/29/2019 04/29/2012, 05/0 03/2008, 10/18/2004 Depression Screening 10/29/2019 10/29/2018 COVID-19 Vaccine ( season) 2024 09/23/2021, 01/05/2021, 12/14/2020 Influenza Vaccine (FLU shot) (#1) 2024 09/12/2019, 09/12/2019 Albumin/Creatinine Ratio 08/21/2024 023, 01/21/2022, 10/29/2018 CKD HGB USE SMARTSET 92925 09/18/202409/18, 09/01/2022, 09/01/2022, Additional history exists CKD PHOS USE SMARTSET 98839 04/26/202504/16, 08/21/2023, 01/21/2023, Additional history exists Hepatitis [...] as of this encounter Visit Diagnoses Diagnosis Mixed dyslipidemia Mixed hyperlipidemia Stage 3b chronic kidney disease (HCC) terminal carman current use of therapeutic drug documented in this encounter Advance Directives * Full Code (Latest Code Status on File) Date Activated Date Inactivated Comments 08/26/2008 5:27 PM 08/31/2008 9:03 PM Care Teams Apartment Coordinator Relationship Specialty Start Date End Date Elo Olvera DO [address] [place] [address] [place] [phone] PCP - General Internal Medicine 01/05/19 documented as of this encounter
--- OUTSIDE RECORDS SUMMARY | 2025-02-25 00:02 | External Medical Summary ---
Author Name Unknown Address Unknown Organization : Laboratory Report Ordering Provider Test Date Status EDYTA BALBUENA 12/13/2024 14:01:10 Final Therapeutic ranges for non-o perative patients:
Prophylaxsis/treatment of DVT: (Range:2.0-3.0)
Treatment of pulmonary embolism:(Range:2.0-3.0)
Prevention of systemic embolism from:
-tissue heart valves
-acute myocardial infarction
-valvular heart disease
-atrial fibrillation
(Range: 2.0-3.0)
Mechanical prosthetic valves: (Range: 2.5-3.5) Observation Date Value Abnormality Reference (Units ) Status INR in Capillary blood by Coagulation assay 12/13/2024 14:01:10 1.8 (INR) Final Performing Location
--- OUTSIDE RECORDS SUMMARY | 2025-02-25 00:02 | External Medical Summary ---
Author Name Unknown Address Unknown Organization [id number][place] [facility] [place] [address] [place] [address] Laboratory Report Ordering Provider Test Date Status JACKY LAWSON 12/16/2024 11:33:30 Final Observation Date Value Abnormality Reference (Units ) Status Hemoglobin 12/16/2024 11:33:30 11.7 Below low normal 12 .0-15.3 (g/dL) Final Performing Location LABORATORY C - [address] [place] [address]
--- OUTSIDE RECORDS SUMMARY | 2025-02-25 00:02 | External Medical Summary ---
Author Name Unknown Address Unknown Organization [id number]:[place] [facility] [place] [address] [place] [address] Laboratory Report Ordering Provider Test Date Status JACKY LAWSON 12/16/2024 11:33:30 Final Normal: <30 mg/g creatinine< br/>High: 30-300 mg/g creatinine
Very High: >300 mg/g creatinine
Nephrotic: >2200 mg/g creatinine Observation Date Value Abnormality Reference (Units ) Status Albumin, Urine 12/16/2024 11:33:30 3.00 (mg/dL) Final Creatinine, Urine 12/16/2024 11:33:30 110 (mg/dL) Final Albumin/Creatinine [Mass Ratio] in Urine 12/16/2024 11:33:30 27 <30 (mg/g Creat) Final Performing Location LABORATORY [facility] [place] - [address] [place] [address]
--- OUTSIDE RECORDS SUMMARY | 2025-02-25 00:02 | External Medical Summary ---
Author Name Unknown Address Unknown Organization [id number]:[place] [facility] [place] [facility] [address] [facility] [address] [place] [address] Laboratory Report Ordering Provider Test Date Status JACKY LAWSON 12/16/2024 11:33:30 Final Observation Date Value Abnormality Reference (Units ) Status BUN 12/16/2024 11:33:30 29 Above high normal 6-20 (mg/dL) Final Creatinine 12/16/2024 11:33:30 1.6 Above high normal 0.5-1.0 (mg/dL) Final Glomerular filtration rate/1.73 sq M.predicted [Volume Rate/Area] in Serum, Plasma or Blood by Creatinine-based formula (CKD-EPI) 12/16/2024 11:33:30 32 Below low normal >=60 (mL/min) Final eGFR is calculated based on the CKD-EPI 2020 equation. Sodium 12/16/2024 11:33:30 141 135-146 (m mol/L) Final Potassium 12/16/2024 11:33:30 4.2 3.5-5.1 (m mol/L) Final Cl 12/16/2024 11:33:30 106 98-107 (mm ol/L) Final CO2 12/16/2024 11:33:30 24 22-32 (mmo l/L) Final Anion gap 12/16/2024 11:33:30 11 7-15 (mmol /L) Final Glucose 12/16/2024 11:33:30 87 70-120 (mg /dL) Final Calcium 12/16/2024 11:33:30 9.6 8.4-10.2 ( mg/dL) Final Performing Location [facility] [facility] [place] [address] [place] [address]
--- OUTSIDE RECORDS SUMMARY | 2025-02-25 00:02 | External Medical Summary | Summary of Care ---
Author Name Unknown Organization [facility] Address [address] [facility] [place] [address] Phone [phone] Care Team Providers Care Triage Rn Name Role Phone Elo Olvera DO Primary Care Provider Reason for Visit * Reason Onset Date Comments Order Request 12/21/2024 Needs order sent to [facility] Encounter Details Date Type Department Care Team (Late st Contact Info) Description 12/21/2024 Telephone Family Medicine [address] [place] [phone] Elo Olvera [address] [place] [phone] Order Request (Needs order sent to [facility]... Allergies Active Allergy Reactions Criticality Noted Date Comments Influenza Vaccines 01/21/2023 Penicillins 08/08/2016 Hives documented as of this encounter (statuses as of 12/22/2024) Medications ECOTRIN LOW STRENGTH 81 MG PO [...] 1 Capsule by mouth daily. 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 Iatrogenic pulmonary embolism and infarction 11/22/2008 documented as of this encounter (statuses as of 12/22/2024) Immunizations Name Administration Dates Next Due COVID-19 [...] encounter Miscellaneous Notes * Telephone Encounter - Minerva Santo LPN - 12/22/2024 3:14 PM EST Order submitted through [facility]. * Telephone Encounter - Dary Guevara OSA - 12/21/2024 11:50 AM EST The patient took the prescription for the rolator walker [place] [facility] [place] and was told that the order needs sent to [facility] Please [facility] script to [facility]. documented in this encounter Plan of Treatment Upcoming Encounters Date Type Department Care Team (Late st Contact Info) Description 01/05/2025 3:20 PM EST Office Visit Nephrology [address] [place] [address] Samanta Bonner MD [address] [place], [place] [address] [address] 01/23/2025 2:10 PM EDT Anticoagulation Pharmacy, [address] [place] [address] [place] [address] 06/13/2025 1:00 PM EDT Office Visit Family Medicine [address] [place] [phone] Clau Lucas [address] [place] [address] 12/13/2025 2:30 PM EST Office Visit Family Medicine [address] [place] [phone] Elo Olvera DO [address] [place] [address] [place] [address] Health Maintenance Due Date Last Done Comments Zoster Vaccines (1 of 2) 1985 DTap/Tdap Vaccines (1 - Tdap) 11/17/2000 11/16/2000 Adult Wellness Visit 2001 DXA Scan 04/29/2019 04/29/2012, 0503/2008, 10/18/2004 Depression Screening 10/29/2019 10/29/2018 COVID-19 Vaccine ( season) 2024 09/23/2021, 01/05/2021, 12/14/2020 Influenza Vaccine (FLU shot) (#1) 2024 09/12/2019, 09/12/2019 CKD PHOS USE SMARTSET 46729 04/26/202504/16, 08/21/2023, 01/21/2023, Additional history exists Albumin/Creatinine Ratio 12/16/2025 025, 08/21/2023, 01/21/2022, Additional history exists CKD HGB USE SMARTSET 18148 12/16/202512/16, 09/18/2023, 09/01/2022, Additional history exists Hepatitis [...] 5:27 PM 08/31/2008 9:03 PM Care Teams Triage Rn Relationship Specialty Start Date End Date Elo Olvera DO [address] [place] [address] [place] [address] PCP - General Internal Medicine 01/05/19 documented as of this encounter
--- OUTSIDE RECORDS SUMMARY | 2025-02-25 00:02 | External Medical Summary ---
Author Name Unknown Address Unknown Organization K01:[place] [facility] [place] [address] [place] [address] Laboratory Report Ordering Provider Test Date Status RENNYRICO 12/16/2024 11:33:30 Final Observation Date Value Abnormality Reference (Units ) Status Parathyrin.intact [Mass/volume] in Serum or Plasma 12/16/2024 11:33:30 114 Above high normal 15-65 (pg/mL) Final Performing Location [place] [facility] [address] [place] [address]
--- OUTSIDE RECORDS SUMMARY | 2025-02-25 00:03 | External Medical Summary ---
Author Name Unknown Address Unknown Organization : Laboratory Report Ordering Provider Test Date Status EDYTA BALBUENA 11/02/2024 13:52:27 Final Therapeutic ranges for non-o perative patients:
Prophylaxsis/treatment of DVT: (Range:2.0-3.0)
Treatment of pulmonary embolism:(Range:2.0-3.0)
Prevention of systemic embolism from:
-tissue heart valves
-acute myocardial infarction
-valvular heart disease
-atrial fibrillation
(Range: 2.0-3.0)
Mechanical prosthetic valves: (Range: 2.5-3.5) Observation Date Value Abnormality Reference (Units ) Status INR in Capillary blood by Coagulation assay 11/02/2024 13:52:27 2.0 (INR) Final Performing Location
--- OUTSIDE RECORDS SUMMARY | 2025-02-25 00:03 | External Medical Summary ---
Author Name Unknown Address Unknown Organization : Laboratory Report Ordering Provider Test Date Status EDYTA BALBUENA 09/14/2024 14:02:37 Final Therapeutic ranges for non-o perative patients:
Prophylaxsis/treatment of DVT: (Range:2.0-3.0)
Treatment of pulmonary embolism:(Range:2.0-3.0)
Prevention of systemic embolism from:
-tissue heart valves
-acute myocardial infarction
-valvular heart disease
-atrial fibrillation
(Range: 2.0-3.0)
Mechanical prosthetic valves: (Range: 2.5-3.5) Observation Date Value Abnormality Reference (Units ) Status INR in Capillary blood by Coagulation assay 09/14/2024 14:02:37 1.9 (INR) Final Performing Location
--- OUTSIDE RECORDS SUMMARY | 2025-02-25 00:03 | External Medical Summary | Summary of Care ---
Author Name Unknown Organization [facility] Address [address] [facility] [place] [address] Phone [phone] Care Team Providers Care Configuration Management Advisor Name Role Phone Elo Olvera Primary Care Provider Reason for Visit * Reason Comments Dosage Adjustment In Person (Anticoag Cl inic) Encounter Details Date Type Department Care Team (Latest Contact Info) Description 11/02/2024 1:50 PM EST Anticoagulation Pharmacy, [address] [place] [phone] [place] [address] Anticoagulation management encounter*; History of pulmonary embolism; COAGULATION DISORDER ACQUIRED COAGULATN DEFECT Allergies Active Allergy Reactions Criticality Noted Date Comments Influenza Vaccines 01/21/2023 Penicillins 08/08/2016 Hives documented as of this encounter (statuses as of 11/02/2024) Medications ECOTRIN LOW STRENGTH 81 MG PO [...] mouth daily. 1 Capsule 08/28/20 23 Active Losartan Potassium 50 MG Oral Tablet (Cozaar) Take 1 Tablet by mouth in the morning. 90 Tablet 3 12/14/19 24 Active Warfarin Sodium 5 MG Oral Tablet (Coumadin)Indicat ions:History of pulmonary embolism,Acquired coagulation factor deficiency (HCC),Anticoagula tion management encounter,longterm current use of anticoagulant therapy,Prothromb in gene [...] morning. 90 Tablet 3 09/02/20 24 Active documented as of this encounter (statuses as of 11/02/2024) Active Problems Problem Noted Date Diagnosed Date [...] as of this encounter (statuses as of 11/02/2024) Resolved Problems Problem Noted Date Diagnosed Date [...] FX ANKLE NOS-CLOSED 02/15/20 08 LOC PRIM [id number] 10/18 Other forms of retinal detachment(361.89) 07/26/2018 Other cataract 07/07/2017 Disorder of bone and cartilage 05/05/2012 Mixed dyslipidemia 9 Overview (10/23/2009): Per Lipid Taxonomy. Iatrogenic pulmonary embolism and infarction 11/22/2008 documented as of this encounter (statuses as of 11/02/2024) Immunizations Name Administration Dates Next Due COVID-19 [...] as of this encounter Progress Notes * Opla Rangel, [facility] - 11/02/2024 1:49 PM EST Medication Therapy Disease Management - Anticoagulation Patient: Anne-Marie Blanco | : 1935 Subjective Patient-Reported Symptoms: Patient Findings Negatives: Signs/symptoms of thrombosis, Signs/symptoms of bleeding, Change in health, Change in alcohol use, Change in activity, Upcoming invasive procedure, Missed doses, Extra doses, Change in medications, Change in diet/appetite, Bruising Objective Current Warfarin Dose As of 11/02/2024 Warfarin maintenance plan: 5 mg (5 mg x 1) every Tue, Marline, Sat; 2.5 mg (5 mg x 0.5) all other days INR Result As of 11/02/2024 INR goal: 2.0-3.0 INR used for dosin.0 (11/02/2024) Assessment & Plan Warfarin Plan As of 11/02/2024 Full warfarin instructions: 5 mg every Tue, Marline, Sat; 2.5 mg all other days No change documented: Opal Rangel francisco j Next INR check: 12/13/2024 Repeat PT/INR in 6 week(s) Weekly dose: not changed Additional Dosing Information: I spent a total of 10-19 minutes (exact time 10 mins) on the date of service in preparation, delivery, and documentation of the care provided to Anne-Marie Blanco excluding any time spent in the performance of separately billed services or time spent by another provider/QHP. Opal Rangel RPh Clinical Pharmacist 11/02/2024, 1:50 PM documented in this encounter Plan of Treatment Upcoming Encounters Date Type Department Care Team (Late st Contact Info) Description 12/13/2024 2:00 PM EST Anticoagulation Pharmacy, [address] [place] [address] [place] [address] 12/13/2024 2:30 PM EST Office Visit Family Medicine [address] [place] [phone] Wade Elodianne Hyman[address] [place] [address] 01/05/2025 3:20 PM EST Office Visit Nephrology [address] [place] [address] [facility] [address] [facility] Maintenance Due Date Last Done Comments Zoster Vaccines (1 of 2) 1985 DTap/Tdap Vaccines (1 - Tdap) 11/17/2000 11/16/2000 Adult Wellness Visit 2001 DXA Scan 04/29/2019 04/29/2012, 03/2008, 10/18/2004 Depression Screening 10/29/2019 10/29/2018 COVID-19 Vaccine ( season) 2024 09/23/2021, 01/05/2021, 12/14/2020 Influenza Vaccine (FLU shot) (#1) 2024 09/12/2019, 09/12/2019 Albumin/Creatinine Ratio 08/21/2024 023, 01/21/2022, 10/29/2018 CKD HGB USE SMARTSET 17283 09/18/202409/18, 09/01/2022, 09/01/2022, Additional history exists CKD PHOS USE SMARTSET 24364 04/26/202504/16, 08/21/2023, 01/21/2023, Additional history exists Hepatitis B Vaccine Completed 08/30/1994, 04/30/1994, 03/30/1994 Pneumococcal Vaccine: 65+ Years Completed 01/15/2018, 04/15/2002 HPV (Gardasil) Vaccine [...] Comments INR FINGERSTICK, POINT OF CARE STAT 11/02/2024 1:52 PM EST History of pulmonary embolism COAGULATION DISORDER ACQUIRED COAGULATN DEFECT Anticoagulation management encounter documented in this encounter Results * INR FINGERSTICK, POINT OF CARE (11/02/2024 1:52 PM EST) Fingerstick INR 2.0 INR 1:54 PM EST [facility] Blood 11/02/2024 1:52 PM EST 11/02/2024 1:54 PM EST Narrative [facility] - 11/02/2024 1:54 PM EST Therapeutic ranges for non-operative patients: Prophylaxsis/treatment of DVT: (Range:2.0-3.0) Treatment of pulmonary embolism:(Range:2.0-3.0) Prevention of systemic embolism from: -tissue heart valves -acute myocardial infarction -valvular heart disease -atrial fibrillation (Range: 2.0-3.0) Mechanical prosthetic valves: (Range: 2.5-3.5) Opal Rangel [facility] LAB POINT OF CARE TEST DOCKED DEVICE UNSOLICITED RESULTS Final Result [facility] [place] [address] [place] [address] documented in this encounter Visit Diagnoses Diagnosis Anticoagulation management encounter- Primary Encounter for therapeutic drug monitoring History of pulmonary embolism Personal history of pulmonary embolism COAGULATION DISORDER ACQUIRED COAGULATN DEFECT Acquired coagulation factor deficiency documented in this encounter Advance Directives * Full Code (Latest Code Status on File) Date Activated Date Inactivated Comments 08/26/2008 5:27 PM 08/31/2008 9:03 PM Care Teams Configuration Management Advisor Relationship Specialty Start Date End Date Elo Olvera DO [address] [place] [address] [place] [address] PCP - General Internal Medicine 01/05/19 documented as of this encounter"
--- OUTSIDE RECORDS SUMMARY | 2025-02-25 00:03 | External Medical Summary | Summary of Care ---
Author Name Unknown Organization [facility] Address [address] [facility] [place] [address] Phone [phone] Care Team Providers Care Mail List Librarian Name Role Phone Elo Olvera Primary Care Provider [phone] Reason for Visit * Reason Comments Dosage Adjustment In Person (Anticoag Cl inic) Encounter Details Date Type Department Care Team (Latest Contact Info) Description 09/14/2024 2:00 PM EDT Anticoagulation Pharmacy, [address] [place] [address] [place] [address] Anticoagulation management encounter*; History of pulmonary embolism; COAGULATION DISORDER ACQUIRED COAGULATN DEFECT Allergies Active Allergy Reactions Criticality Noted Date Comments Influenza Vaccines 01/21/2023 Penicillins 08/08/2016 Hives documented as of this encounter (statuses as of 09/14/2024) Medications Medication Sig Dispensed Refills Start Date End Date Status ECOTRIN LOW STRENGTH 81 MG PO TBECIndications:Oth er pulmonary embolism and infarction One pill by mouth once a day 100 Tab 5 10/30/2011 Active Additional Information Patient taking differently:Oral,Takes at night, Reported on 12/14/2023 Omeprazole 20 MG Oral Capsule Delayed Release (PriLOSEC) 1 Capsule. 06/03/2022 Active Vitamin D3 25 MCG (1000 UT) Oral Capsule Take 1 Capsule by mouth daily. 1 Capsule 08/28/2023 Active Losartan Potassium 50 MG Oral Tablet (Cozaar) Take 1 Tablet by mouth in the morning. 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 Active amLODIPine Besylate 5 MG Oral Tablet (Norvasc)Indication s:HTN, goal below 140/90 Take 1 Tablet by mouth in the morning. 90 Tablet 3 08/29/2024 Active hydroCHLOROthiazide 12.5 MG Oral Tablet Take 1 Tablet by mouth in the morning. 90 Tablet 3 09/02/2024 Active documented as of this encounter (statuses as of 09/14/2024) Active Problems Problem Noted Date Diagnosed Date Hyperparathyroidism 01/21/2023 Hypertensive kidney disease with stage 3b chronic kidney disease 01/21/2022 Stage 3b chronic kidney disease 09/24/2020 Overview: Per CKD protocol - Per CKD protocol Actinic keratosis 06/20/2019 Prothrombin gene mutation 01/12/2019 Chronic anticoagulation 01/12/2019 Hx of nonmelanoma skin cancer 06/16/2018 Overview: basal cell carcinoma (L nasal ala/L side [...] as of this encounter (statuses as of 09/14/2024) Resolved Problems Problem Noted Date Diagnosed Date [...] Dyslipidemia, goal to be determined 10/23/2009 10/31/2009 Overview: Per Lipid Taxonomy. HTN, goal below 140/90 09/21/200911/04 Overview: Modified per HTN Taxonomy. Vertigo 09/20/2008 09/21/2008 ACTIVE CASE MANAGEMENT Daysi Ramos RN 09/01/2008 09/02/2010 Overview: Corns and callosities 05/05/20072007 ADVANCE DIRECTIVE INFORMATION 11/05/2005 01/12/2019 Overview: No, Advance Directive brochure offered , patient declined. 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 FX ANKLE NOS-CLOSED 02/15/20 08 LOC PRIM [id number] 10/18 Other forms of retinal detachment(361.89) 07/26/2018 Other cataract 07/07/2017 Disorder of bone and cartilage 05/05/2012 Mixed dyslipidemia 9 Overview: Per Lipid Taxonomy. Iatrogenic pulmonary embolism and infarction 11/22/2008 documented as of this encounter (statuses as of 09/14/2024) Immunizations Name Administration Dates Next Due COVID-19 [...] in the Last Year Never true 12/16/2019 Sex and Gender Information Value Date Recorded Sex Assigned at Not on file Gender Identity Not on file Sexual Orientation Not on file Job Start Date Occupation Industry Not on file Not on file Not on file documented as of this encounter Progress Notes * Opal Rangel, [facility] - 09/14/2024 1:59 PM EDT Images from the original note were not included. Medication Therapy Disease Management - Anticoagulation Patient: Anne-Marie Blanco | : 1935 Subjective Contacts Contact Date/Time Type Contact Phone/Fax 09/07/2024 05:11 AM EDT Vendor (Outgoing) Anne-Marie Blanco [phone] 09/11/2024 05:13 AM EDT Vendor (Outgoing) Anne-Marie Blanco [phone] 09/13/2024 05:12 AM EDT Vendor (Outgoing) Anne-Marie Blanco [phone] Patient-Reported Symptoms: Patient Findings Positives: Change in diet/appetite (Increase in Vit K) Negatives: Signs/symptoms of thrombosis, Signs/symptoms of bleeding, Change in health, Change in alcohol use, Change in activity, Upcoming invasive procedure, Missed doses, Extra doses, Change in medications, Bruising Objective Current Warfarin Dose As of 09/14/2024 Warfarin maintenance plan: 5 mg (5 mg x 1) every Tue, Marline, Sat; 2.5 mg (5 mg x 0.5) all other days INR Result As of 09/14/2024 INR goal: 2.0-3.0 INR used for dosin.9 (09/14/2024) Assessment & Plan Warfarin Plan As of 09/14/2024 Full warfarin instructions: 09/14: 5 mg; Otherwise 5 mg every Tue, Marline, Sat; 2.5 mg all other days Next INR check: 10/26/2024 Repeat PT/INR in 6 week(s) Weekly dose: not changed Additional Dosing Information: I spent a total of 10-19 minutes (exact time 10 mins) on the date of service in preparation, delivery, and documentation of the care provided to Anne-Marie Blanco excluding any time spent in the performance of separately billed services or time spent by another provider/QHP. Opal Rangel [facility] Clinical Pharmacist 09/14/2024, 1:59 PM documented in this encounter Plan of Treatment Upcoming Encounters Date Type Department Care Team (Late st Contact Info) Description 10/26/2024 1:30 PM EST Anticoagulation Pharmacy, [address] [place] [address] [place] [address] 12/13/2024 2:30 PM EST Office Visit Family Medicine [address] [place] [phone] [address] [place] [address] 01/05/2025 3:20 PM EST Office Visit Nephrology [address] [place] [address] Samanta Bonner MD [facility] [place] [address] Health Maintenance Due Date Last Done Comments Zoster Vaccines (1 of 2) 1985 DTap/Tdap Vaccines (1 - Tdap) 11/17/2000 11/16/2000 Adult Wellness Visit 2001 DXA Scan 04/29/2019 04/29/2012, 03/2008, 10/18/2004 Depression Screening 10/29/2019 10/29/2018 COVID-19 Vaccine ( season) 2024 09/23/2021, 01/05/2021, 12/14/2020 Influenza Vaccine (FLU shot) (#1) 2024 09/12/2019, 09/12/2019 Albumin/Creatinine Ratio 08/21/2024 023, 01/21/2022, 10/29/2018 CKD HGB USE SMARTSET 26356 09/18/202409/18, 09/01/2022, 09/01/2022, Additional history exists CKD PHOS USE SMARTSET 92331 04/26/202504/16, 08/21/2023, 01/21/2023, Additional history exists Hepatitis [...] Comments INR FINGERSTICK, POINT OF CARE STAT 09/14/2024 2:02 PM EDT History of pulmonary embolism COAGULATION DISORDER ACQUIRED COAGULATN DEFECT Anticoagulation management encounter documented in this encounter Results * INR FINGERSTICK, POINT OF CARE (09/14/2024 2:02 PM EDT) Fingerstick INR 1.9 INR 2:04 PM EDT [facility] Blood 09/14/2024 2:02 PM EDT 09/14/2024 2:04 PM EDT Narrative [facility] - 09/14/2024 2:04 PM EDT Therapeutic ranges for non-operative patients: Prophylaxsis/treatment of DVT: (Range:2.0-3.0) Treatment of pulmonary embolism:(Range:2.0-3.0) Prevention of systemic embolism from: -tissue heart valves -acute myocardial infarction -valvular heart disease -atrial fibrillation (Range: 2.0-3.0) Mechanical prosthetic valves: (Range: 2.5-3.5) Opal Bhavani Rangel [facility] LAB POINT OF CARE TEST DOCKED DEVICE UNSOLICITED RESULTS [facility] [place] [address] [place] [address] documented in this encounter Visit Diagnoses Diagnosis Anticoagulation management encounter- Primary Encounter for therapeutic drug monitoring History of pulmonary embolism Personal history of pulmonary embolism COAGULATION DISORDER ACQUIRED COAGULATN DEFECT Acquired coagulation factor deficiency documented in this encounter Advance Directives * Full Code (Latest Code Status on File) Date Activated Date Inactivated Comments 08/26/2008 5:27 PM 08/31/2008 9:03 PM Care Teams Mail List Librarian Relationship Specialty Start Date End Date Elo Olvera DO [address] [place] [address] [place] [address] PCP - General Internal Medicine 01/05/19 documented as of this encounter"
--- OUTSIDE RECORDS SUMMARY | 2025-02-25 00:03 | External Medical Summary | Summary of Care ---
Author Name Unknown Organization [facility] Address [address] [facility] [place] [address] Phone [phone] Care Team Providers Care Damage Assessor Name Role Phone Elo Olvera Primary Care Provider Reason for Visit * Reason Onset Date Comments Medication Refill 09/02/2024 Encounter Details Date Type Department Care Team (Late st Contact Info) Description 09/02/2024 Refill Nephrology, [place] [address] [place] [address] Samanta Bonner MD [address] [place] [address] Allergies Active Allergy Reactions Criticality Noted Date Comments Influenza Vaccines 01/21/2023 Penicillins 08/08/2016 Hives documented as of this encounter (statuses as of 09/02/2024) Medications Medication Sig Dispensed Refills Start Date [...] by mouth daily. 1 Capsule 08/28/2023 Active hydroCHLOROthiazide 12.5 MG Oral Tablet (Hydrodiuril) TAKE 1 TABLET BY MOUTH EVERY DAY IN THE MORNING (12.5 MG) 90 Tablet 3 09/17/2023 Active Losartan Potassium 50 MG Oral Tablet (Cozaar) Take 1 Tablet by mouth in the morning. 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 90 Tablet 3 08/29/2024 Active documented as of this encounter (statuses as of 09/02/2024) Active Problems Problem Noted Date Diagnosed Date [...] as of this encounter (statuses as of 09/02/2024) Resolved Problems Problem Noted Date Diagnosed Date [...] update of inactive term BENIGN HYPERTENSION 09/21/20 Overview: Modified per HTN Taxonomy. FX ANKLE NOS-CLOSED 02/15/20 08 LOC PRIM [id number] 10/18 Other forms of retinal detachment(361.89) 07/26/2018 Other cataract 07/07/2017 Disorder of bone and cartilage 05/05/2012 Mixed dyslipidemia 9 Overview: Per Lipid Taxonomy. Iatrogenic pulmonary embolism and infarction 11/22/2008 documented as of this encounter (statuses as of 09/02/2024) Immunizations Name Administration Dates Next Due COVID-19 mRNA, LNP-s, No Pre serve, 2-Dose Series (Moderna) 01/05/2021,12/14/2020 COVID-19, mRNA, LNP-s, PF, B ooster, 100mcg/0.5mg (Moderna) 09/23/2021 Hepatitis B, 20+ yrs 08/30/1994,04/30/1994,03/30 Pneumococcal Conjugate Vacc, 13 Valent (Prevnar) 01/15/2018 Pneumococcal Polysaccharide PPV23 (Pneumovax) 04/15/2002 Seasonal Influenza, PF, 6 M & above, [...] encounter Miscellaneous Notes * Telephone Encounter - Teresa Sylvester CPhT - 09/02/2024 9:59 AM EDT Transferred to speciality line. Thank you, Teresa Sylvester CPhT [employer] Administrator III [facility] 09/02/2024, 9:59 AM * Telephone Encounter - Bertha Zurita PHARM Tech - 09/02/2024 9:52 AM EDT Transferred to specialty Thank you for your assistance Bertha Zurita [employer] Administrator II [facility]) 09/02/2024,9:52 AM documented in this encounter Plan of Treatment Upcoming Encounters Date Type Department Care Team (Late st Contact Info) Description 09/14/2024 2:00 PM EDT Anticoagulation Pharmacy, [address] [place] [address] [place] [address] 12/13/2024 2:30 PM EST Office Visit Family Medicine [address] [place] [phone] [place] [address] Health Maintenance Due Date Last Done Comments Zoster Vaccines (1 of 2) 1985 DTap/Tdap Vaccines (1 - Tdap) 11/17/2000 11/16/2000 Adult Wellness Visit 2001 DXA Scan 04/29/2019 04/29/2012, 05/0 03/2008, 10/18/2004 Depression Screening 10/29/2019 10/29/2018 COVID-19 Vaccine ( season) 2024 09/23/2021, 01/05/2021, 12/14/2020 Influenza Vaccine (FLU shot) (#1) 2024 09/12/2019, 09/12/2019 Albumin/Creatinine Ratio 08/21/2024 023, 01/21/2022, 10/29/2018 CKD HGB USE SMARTSET 10528 09/18/202409/18, 09/01/2022, 09/01/2022, Additional history exists CKD PHOS USE SMARTSET 44571 04/26/202504/16, 08/21/2023, 01/21/2023, Additional history exists Hepatitis [...] 5:27 PM 08/31/2008 9:03 PM Care Teams Damage Assessor Relationship Specialty Start Date End Date Elo Olvera DO [address] [place] [address] [place] [address] PCP - General Internal Medicine 01/05/19 documented as of this encounter
--- OUTSIDE RECORDS SUMMARY | 2025-02-25 00:03 | External Medical Summary | Summary of Care ---
Author Name Unknown Organization [facility] Address [address] [facility] [address] Phone [phone] Care Team Providers Care Wad Impregnator Name Role Phone Renny Rico DO Primary Care Provider Reason for Visit * Reason Onset Date Comments Medication Refill 08/29/2024 Encounter Details Date Type Department Care Team (Late st Contact Info) Description 08/29/2024 Refill Family Medicine [address] [place] [phone] Renny Rico DO [address] [place] [address] [place] [address] HTN, goal below 140/90 Allergies Active Allergy Reactions Criticality Noted Date Comments Influenza Vaccines 01/21/2023 Penicillins 08/08/2016 Hives documented as of this encounter (statuses as of 08/29/2024) Medications Medication Sig Dispensed Refills Start Date End Date Status ECOTRIN LOW STRENGTH 81 MG PO TBECIndications:Ot her pulmonary embolism and infarction One pill by mouth once a day 100 Tab 5 1 Active Additional Information Patient taking differently:Oral,Takes at night, Reported on 12/14/2023 Omeprazole 20 MG Oral Capsule Delayed Release (PriLOSEC) 1 Capsule. 2 Active Vitamin D3 25 MCG (1000 UT) Oral Capsule Take 1 Capsule by mouth daily. 1 Capsule 3 Active hydroCHLOROthiazid e 12.5 MG Oral Tablet (Hydrodiuril) TAKE 1 TABLET BY MOUTH EVERY DAY IN THE MORNING (12.5 MG) 90 Tablet 3 3 Active Losartan Potassium 50 MG Oral Tablet (Cozaar) Take 1 Tablet by mouth in the morning. 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 Active amLODIPine Besylate 5 MG Oral Tablet (Norvasc)Indicatio ns:HTN, goal below 140/90 Take 1 Tablet by mouth in the morning. 90 Tablet 3 4 Active amLODIPine Besylate 5 MG Oral Tablet (Norvasc)Indicatio ns:HTN, goal below 140/90 Take 1 Tablet by mouth in the morning. 90 Tablet 3 3 08/29/20 24 Discontinu ed(Refill) documented as of this encounter (statuses as of 08/29/2024) Active Problems Problem Noted Date Diagnosed Date [...] as of this encounter (statuses as of 08/29/2024) Resolved Problems Problem Noted Date Diagnosed Date [...] FX ANKLE NOS-CLOSED 02/15/20 08 LOC PRIM [id number] 10/18 Other forms of retinal detachment(361.89) 07/26/2018 Other cataract 07/07/2017 Disorder of bone and cartilage 05/05/2012 Mixed dyslipidemia 9 Overview: Per Lipid Taxonomy. Iatrogenic pulmonary embolism and infarction 11/22/2008 documented as of this encounter (statuses as of 08/29/2024) Immunizations Name Administration Dates Next Due COVID-19 [...] encounter Miscellaneous Notes * Telephone Encounter - Renny Rico DO - 08/29/2024 9:12 PM EDTSigned Prescriptions: Disp Refills amLODIPine Besylate 5 MG Oral Tablet (Norv*90 Tab*3 Sig: Take 1 Tablet by mouth in the morning. Authorizing Provider: RENNY RICO * Telephone Encounter - Mary Dias RN - 08/29/2024 4:17 PM EDTPending Prescriptions: Disp Refills amLODIPine Besylate 5 MG Oral Tablet (Norv*90 Tab*3 Sig: Take 1 Tablet by mouth in the morning. * Telephone Encounter - Glo Cunningham OSA - 08/29/2024 4:14 PM EDT Did you pend patient's preferred pharmacy and medication before forwarding?yes Pharmacy: [facility] #[id number] Pending Prescriptions: Disp Refills amLODIPine Besylate 5 MG Oral Tablet (Nor*90 Tab*3 Sig: Take 1 Tablet by mouth in the morning. Last Visit: 04/26/2024 (in office), Visit date not found (telemedicine) Next Visit: 12/13/2024 If no future appointments scheduled, and last appointment is greater than a year ago, please schedule patient for a follow-up appointment Last date the medication was ordered: 09.16.23 Is this request for a controlled substance?No Urine Drug Screen:No results found. However, due to the size of the patient record, not all encounters were searched. Please check Results Review for a complete set of results. Patient Phone Numbers Labs: Lab Results Component Value Date/Time CREAT 1.6 (H) 04/26/2024 03:21 PM CREAT 1.3 (H) 09/13/2020 09:07 AM POTASSIUM 4.4 04/26/2024 03:21 PM POTASSIUM 3.8 09/13/2020 09:07 AM TSH 2.00 11/15/2013 08:15 AM LDL 94 04/26/2024 03:21 PM LDL 110 01/21/2023 02:28 PM LDL 84 07/11/2020 08:30 AM LDL NOT APPLICABLE 07/11/2020 08:30 AM ALT 14 04/26/2024 03:21 PM ALT 15 07/11/2020 08:30 AM documented in this encounter Plan of Treatment Upcoming Encounters Date Type Department Care Team (Late st Contact Info) Description 09/14/2024 2:00 PM EDT Anticoagulation Pharmacy, [address] [place] [address] [place] [address] 12/13/2024 2:30 PM EST Office Visit Family Medicine [address] [place] [phone] [place] [address] Health Maintenance Due Date Last Done Comments Zoster Vaccines (1 of 2) 1985 DTap/Tdap Vaccines (1 - Tdap) 11/17/2000 11/16/2000 Adult Wellness Visit 2001 DXA Scan 04/29/2019 04/29/2012, 05/0 03/2008, 10/18/2004 Depression Screening 10/29/2019 10/29/2018 COVID-19 Vaccine ( season) 2024 09/23/2021, 01/05/2021, 12/14/2020 Influenza Vaccine (FLU shot) (#1) 2024 09/12/2019, 09/12/2019 Albumin/Creatinine Ratio 08/21/2024 023, 01/21/2022, 10/29/2018 CKD HGB USE SMARTSET 60130 09/18/202409/18, 09/01/2022, 09/01/2022, Additional history exists CKD PHOS USE SMARTSET 59827 04/26/202504/16, 08/21/2023, 01/21/2023, Additional history exists Hepatitis [...] as of this encounter Visit Diagnoses Diagnosis HTN, goal below 140/90 Unspecified essential hypertension documented in this encounter Advance Directives * Full Code (Latest Code Status on File) Date Activated Date Inactivated Comments 08/26/2008 5:27 PM 08/31/2008 9:03 PM Care Teams Wad Impregnator Relationship Specialty Start Date End Date Renny Rico DO [address] [place] [address] [place] [address] PCP - General Internal Medicine 01/05/19 documented as of this encounter
--- OUTSIDE RECORDS SUMMARY | 2025-02-25 00:03 | External Medical Summary | Summary of Care ---
Author Name Unknown Organization [facility] Address [address] [facility] [address] Phone [phone] Care Team Providers Care Piano Bench Assembler Name Role Phone Elo Olvera Primary Care Provider Reason for Visit * Reason Onset Date Comments Appointment 09/02/2024 Encounter Details Date Type Department Care Team (Late st Contact Info) Description 09/02/2024 Telephone Nephrology, [place] [facility] [place] [address] Samanta Bonner MD [address] [facility] [place] [address] Appointment Allergies Active Allergy Reactions Criticality Noted Date [...] by mouth daily. 1 Capsule 3 Active Losartan Potassium 50 MG Oral Tablet (Cozaar) Take 1 Tablet by mouth in the morning. 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 90 Tablet 3 4 Active hydroCHLOROthiazid e 12.5 MG Oral Tablet (Hydrodiuril) TAKE 1 TABLET BY MOUTH EVERY DAY IN THE MORNING (12.5 MG) 90 Tablet 3 3 09/02/20 24 Discontinu ed(Refill) documented as of this [...] FX ANKLE NOS-CLOSED 02/15/20 08 LOC PRIM [id number] 10/18 Other forms of retinal detachment(361.89) 07/26/2018 [...] encounter Miscellaneous Notes * Telephone Encounter - Sada Stevens RN - 09/02/2024 10:58 AM EDT [employer] Miller- Please schedule pt for December [address] Bonner at [facility]. documented in this encounter Plan of Treatment Upcoming Encounters Date Type Department Care Team (Late st Contact Info) Description 09/14/2024 2:00 PM EDT Anticoagulation Pharmacy, [address] [place] [address] [place], [facility] [address] [place] [address] 12/13/2024 2:30 PM EST Office Visit Family Medicine [address] [place] [phone] Elo Olvera, [address] [place] [address] Health Maintenance Due Date Last Done Comments Zoster Vaccines (1 of 2) 1985 DTap/Tdap Vaccines (1 - Tdap) 11/17/2000 11/16/2000 Adult Wellness Visit 2001 DXA Scan 04/29/2019 04/29/2012, 03/2008, 10/18/2004 Depression Screening 10/29/2019 10/29/2018 COVID-19 Vaccine ( season) 2024 09/23/2021, 01/05/2021, 12/14/2020 Influenza Vaccine (FLU shot) (#1) 2024 09/12/2019, 09/12/2019 Albumin/Creatinine Ratio 08/21/2024 023, 01/21/2022, 10/29/2018 CKD HGB USE SMARTSET 65922 09/18/202409/18, 09/01/2022, 09/01/2022, Additional history exists CKD PHOS USE SMARTSET 79041 04/26/202504/16, 08/21/2023, 01/21/2023, Additional history exists Hepatitis [...] 5:27 PM 08/31/2008 9:03 PM Care Teams Piano Bench Assembler Relationship Specialty Start Date End Date Elo Olvera DO [address] [place] [address] [place] [phone] PCP - General Internal Medicine 01/05/19 documented as of this encounter
--- OUTSIDE RECORDS SUMMARY | 2025-02-25 00:03 | External Medical Summary | Summary of Care ---
Author Name Unknown Organization [facility] Address [address] [facility] [place] [address] Phone [phone] Care Team Providers Care Studio Potter Name Role Phone Elo Olvera Primary Care Provider Reason for Visit * Reason Onset Date Comments Medication Refill 09/02/2024 Encounter Details Date Type Department Care Team (Late st Contact Info) Description 09/02/2024 Refill Nephrology [address] [place] [address] Rubens De La Paz MD [facility] [place] [address] Allergies Active Allergy Reactions Criticality Noted Date [...] embolism,Acquired coagulation factor deficiency (HCC),Anticoagulat ion management encounter,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 Authorizing Provider: RUBENS DE LA PAZ * Telephone Encounter - Sada Stevens RN - 09/02/2024 10:56 AM EDTPending Prescriptions: Disp Refills hydroCHLOROthiazide 12.5 MG Oral Tablet 90 Tab*3 Sig: Take 1 Tablet by mouth in the morning. * Telephone Encounter - Sada Stevens RN - 09/02/2024 10:53 AM EDT Prescription request received from pharmacy pending. Please authorize. Last OV 06/21/24 Needs follow up in Dec with . Note sent to barker peeler. * Telephone Encounter - Betsy Espinal elevator installer - 09/02/2024 10:02 AM EDT Patient is up to date for office visits. Pending Prescriptions: Disp Refills hydroCHLOROthiazide 12.5 MG Oral Tablet 90 Tab*3 Last Visit: 08/21/2023 (in office), 12/25/2020 (telemedicine) Next Visit: Visit date not found If no future appointments scheduled, and last appointment is greater than a year ago, please schedule patient for a follow-up appointment Last date the medication was ordered: 09/17/23 Pharmacy: [id number] [address]- [place] Is this request for a controlled substance?No it is not controlled. Urine Drug Screen:No results found. However, due [...] Description 09/14/2024 2:00 PM EDT Anticoagulation Pharmacy, [address] [place] [address] [place] [address] 12/13/2024 2:30 PM EST Office Visit Family Medicine [address] [place] [phone] Elo Olvera, [address] [place] [address] Health Maintenance Due Date Last Done Comments Zoster Vaccines (1 of 2) 1985 DTap/Tdap Vaccines (1 - Tdap) 11/17/2000 11/16/2000 Adult Wellness Visit 2001 DXA Scan 04/29/2019 04/29/2012, 05/0 03/2008, 10/18/2004 Depression Screening 10/29/2019 10/29/2018 COVID-19 Vaccine ( season) 2024 09/23/2021, 01/05/2021, 12/14/2020 Influenza Vaccine (FLU shot) (#1) 2024 09/12/2019, 09/12/2019 Albumin/Creatinine Ratio 08/21/2024 023, 01/21/2022, 10/29/2018 CKD HGB USE SMARTSET 97735 09/18/202409/18, 09/01/2022, 09/01/2022, Additional history exists CKD PHOS USE SMARTSET 42702 04/26/202504/16, 08/21/2023, 01/21/2023, Additional history exists Hepatitis [...] 5:27 PM 08/31/2008 9:03 PM Care Teams Studio Potter Relationship Specialty Start Date End Date Elo Olvera DO [address] [place] [address] [place] [address] PCP - General Internal Medicine 01/05/19 documented as of this encounter
--- OUTSIDE RECORDS SUMMARY | 2025-02-25 00:03 | External Medical Summary | Summary of Care ---
Author Name Unknown Organization [facility] Address [address] [facility] [place] [address] Phone [phone] Care Team Providers Care Gameplay Engineer Name Role Phone Elo Olvera Primary Care Provider Reason for Visit * Reason Onset Date Comments Medication Refill 09/02/2024 Encounter Details Date Type Department Care Team (Late st Contact Info) Description 09/02/2024 Refill Nephrology, [place] [facility] [place] [address] Samanta Bonner MD 200 [facility] [place] [address] Allergies Active Allergy Reactions Criticality Noted Date [...] embolism,Acquired coagulation factor deficiency (HCC),Anticoagulati on management encounter,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 Thank you, Teresa Sylvester CPhT [facility] 09/02/2024, 9:59 AM * Telephone Encounter - Bertha Zurita PHARM Tech - 09/02/2024 9:52 AM EDT Transferred to specialty Thank you for your assistance Bertha Zurita [employer] [facility] 09/02/2024,9:52 AM documented in this encounter Plan of Treatment Upcoming Encounters Date Type Department Care Team (Late st Contact Info) Description 09/14/2024 2:00 PM EDT Anticoagulation Pharmacy, [address] [place] [address] [place] [address] 12/13/2024 2:30 PM EST Office Visit Family Medicine [address] [place] [phone] [place] [address] Health Maintenance Due Date Last Done Comments Zoster Vaccines (1 of 2) 1985 DTap/Tdap Vaccines (1 - Tdap) 11/17/2000 11/16/2000 Adult Wellness Visit 2001 DXA Scan 04/29/2019 04/29/2012, 05/0 03/2008, 10/18/2004 Depression Screening 10/29/2019 10/29/2018 COVID-19 Vaccine ( season) 2024 09/23/2021, 01/05/2021, 12/14/2020 Influenza Vaccine (FLU shot) (#1) 2024 09/12/2019, 09/12/2019 Albumin/Creatinine Ratio 08/21/2024 023, 01/21/2022, 10/29/2018 CKD HGB USE SMARTSET 94868 09/18/202409/18, 09/01/2022, 09/01/2022, Additional history exists CKD PHOS USE SMARTSET 92609 04/26/202504/16, 08/21/2023, 01/21/2023, Additional history exists Hepatitis [...] 5:27 PM 08/31/2008 9:03 PM Care Teams Gameplay Engineer Relationship Specialty Start Date End Date Elo Olvera DO [address] [place] [address] [place] [address] PCP - General Internal Medicine 01/05/19 documented as of this encounter
[2025-02-25] MEDS: metroNIDAZOLE 500 MG/100 ML BAG IV STA (00:07)
[2025-02-25] MEDS: LACTATED RINGER'S 1,000 ML IV SCH ×2 (00:07→11:16)
--- NOTE | 2025-02-25 00:29 | CT Scan Report ---
Exam(s): CT L SPINE EXAM: CT Lumbar Spine Without Intravenous Contrast CLINICAL HISTORY: Reason for exam: L1 back pain, abd pain, no trauma, hx stenosis. TECHNIQUE: Axial computed tomography images of the lumbar spine without intravenous contrast. CTDI is 26.28 mGy and DLP is 1242.93 mGy-cm. Automated exposure control was utilized for the study. A dose lowering technique was utilized adhering to the principles of ALARA. COMPARISON: No relevant prior studies available. FINDINGS: Vertebrae: There is a mild dextroscoliosis and normal lumbar lordosis. There is a mild grade 1 retrolisthesis of L1 and L2 measuring 2 mm and anterolisthesis of L5 and S1 measuring 2 mm. Positive [place] sign at L3- 4 and L4-5. No acute fracture. Diffuse osteopenia throughout the visualized bones. Advanced right and moderate left sacroiliac joint arthropathy. Discs/spinal canal/neural foramina: No acute findings. There is a moderate right L5-S1 neural foraminal stenosis. Advanced disc degeneration at L2-3 and L3-4. No spinal canal stenosis. Soft tissues: Hepatic steatosis. IMPRESSION: No evidence of acute lumbar spine pathology. Moderate right L5-S1 neural foraminal stenosis with impingement of the right L5 nerve root ganglion. Electronically signed by: Alla Sanford MD 02/25/25 00:27 AM
--- NOTE | 2025-02-25 03:57 | History & Physical Report ---
Date of Service February 25, 2025 Assessment & Plan (1) Pancreatitis: Plan: 89-year-old female with past medical history significant for hyperlipidemia, hyperparathyroidism, hypertension, vitamin D deficiency, CKD stage III, female stress incontinence, osteoarthritis, deafness left ear, prothrombin gene mutation, history of pulmonary embolism several years ago and on Coumadin presents with back pain and nausea /vomiting and also lower abdominal pain. Patient says since yesterday she is having back pain and also nausea vomiting. And also lower abdominal pain. Currently symptoms improved. Feeling better currently. Patient says she had similar episode several months ago and also couple of weeks ago. Couple of weeks ago she had abdominal pain, nausea and chills which resolved by themselves. But today no chills or fever. Normal bowel and bladder movements. Denies any chest pain or shortness of breath. No cough. No runny nose or sore throat. No headache. Currently resting comfortably and hemodynamically stable.No pain in the legs. No numbness in the legs. Ambulates okay. Pancreatitis Came with back pain, nausea ,vomiting and lower abdominal pain Lipase is 10,102 Patient is s/p cholecystectomy several years ago Total bilirubin 3.1, AST 203, ALT 187, alkaline phosphatase 194 CT abdomen pelvis shows, CBD is dilated. 1.5 cm node in the right adrenal gland may represent adenoma.(needs followup for adrenal lesion) IV fluids, n.p.o., pain control, antiemetics ER discussed with GI and plan for MRCP Will follow repeat labs Received Rocephin and Flagyl in the ER Will continue with cefepime(renal dosing) and Flagyl Close monitor GI consult Acute UTI Cefepime Will follow cultures Mild elevation troponin Patient asymptomatic Mostly demand ischemia Will follow repeat EKG and repeat troponins Back pain Lumbar spine CT shows moderate right L5-S1 neural foraminal stenosis with impingement of the right 5th nerve root ganglia Ortho spine consult when stable Patient has no pain in the legs or numbness. No incontinence CKD stage III Creatinine 1.6 Seems around baseline Will follow repeat labs Hypertension Amlodipine and losartan with holding parameters Will hold hydrochlorothiazide for now Will monitor GERD On omeprazole History of prothrombin gene mutation History of PE several years ago On Coumadin Will follow PT/INR If INR subtherapeutic will place on IV heparin If no plans for any procedure we will continue with Coumadin DVT prophylaxis SCDs Follow PT/INR Disposition Med/telemetry Full code. History of Present Illness Chief Complaint: Back pain, abdominal pain, nausea and vomiting Primary Care Provider: Elo Olvera DO 89-year-old female with past medical history significant for hyperlipidemia, hyperparathyroidism, hypertension, vitamin D deficiency, CKD stage III, female stress incontinence, osteoarthritis, deafness left ear, prothrombin gene mutation, history of pulmonary embolism several years ago and on Coumadin presents with back pain and nausea /vomiting and also lower abdominal pain. Patient says since yesterday she is having back pain and also nausea vomiting. And also lower abdominal pain. Currently symptoms improved. Feeling better currently. Patient says she had similar episode several months ago and also couple of weeks ago. Couple of weeks ago she had abdominal pain, nausea and chills which resolved by themselves. But today no chills or fever. Normal bowel and bladder movements. Denies any chest pain or shortness of breath. No cough. No runny nose or sore throat. No headache. Currently resting comfortably and hemodynamically stable.No pain in the legs. No numbness in the legs. Ambulates okay. Past medical history. As mentioned above. Past surgical history. Left bimalleolar ankle fracture repair. Laparoscopic cholecystectomy. Social history. . No smoking. Alcohol rarely. No drug use. Family history. Mother had lung cancer. Allergies Allergy/AdvReac Type Severity Reaction Status Date / Time Penicillins Allergy Intermediate Hives Verified 02/24/25 22:19 Influenza Virus Vaccines AdvReac Intermediate Muscle Pain Verified 02/24/25 22:19 Home Medications Medication Instructions Recorded Confirmed Type omeprazole magnesium 20 mg 20 mg PO DAILY 06/03/22 02/24/25 History tablet,delayed release (Prilosec OTC) simvastatin 20 mg tablet 20 mg PO HS 06/03/22 02/24/25 History warfarin 5 mg tablet 2.5 mg PO 4XWK 06/03/22 02/24/25 History warfarin 5 mg tablet 5 mg PO 3XWK 06/03/22 02/24/25 History amlodipine 5 mg tablet 5 mg PO DAILY 02/24/25 02/24/25 History aspirin 81 mg tablet,delayed 81 mg PO HS 02/24/25 02/24/25 History release cholecalciferol (vitamin D3) 25 25 mcg PO DAILY 02/24/25 02/24/25 History mcg (1,000 unit) capsule (Vitamin D3) cyanocobalamin (vitamin B-12) 100 100 mcg PO DAILY 02/24/25 02/24/25 History mcg tablet (Vitamin B-12) hydrochlorothiazide 12.5 mg tablet 12.5 mg PO DAILY 02/24/25 02/24/25 History losartan 50 mg tablet 50 mg PO DAILY 02/24/25 02/24/25 History Past Med/Surg History Problem List (Updated 02/24/25 @ 23:37 by Karthik Brown MD) Back pain (Acute) Acute UTI (urinary tract infection) (Acute) Vomiting (Acute) Elevated LFTs (Acute) Pancreatitis (Acute) HTN (hypertension) HLD (hyperlipidemia) Medical History No pertinent family history HTN (hypertension) HLD (hyperlipidemia) Surgical History No pertinent past surgical history Social History Smoking Status: Never smoker Preferred Language: Lithuanian Feels Safe at Home: Yes Review of Systems Review of Systems: All systems reviewed & are unremarkable except as noted in HPI & below Physical Exam Physical Exam: General- Not in distress Head- atraumatic Eyes- PERRL. ENT- oropharynx clear Neck- supple, no JVD. Lungs- clear to auscultation no wheezing or crackles Heart- regular rhythm; no murmur, no gallop. Abdomen- normal bowel sounds, soft, nontender, no distension Extremities- no pretibial edema, no erythema seen Neuro- alert, oriented PERRL, no facial palsy; no dysarthria; moves extremities Results & Data Results & Data Vital Signs (Past 12 Hours) Vital Signs Temp Pulse Pulse Resp BP BP Pulse Ox 02/25/25 01:11 84 02/25/25 01:00 77 20 135/75 91 02/25/25 00:33 76 24 92 02/25/25 00:00 77 22 133/80 92 02/24/25 23:33 80 26 H 92 02/24/25 23:07 75 17 126/70 93 02/24/25 23:00 82 24 146/79 H 91 02/24/25 22:00 86 20 151/80 H 92 02/24/25 21:54 96 H 93 02/24/25 21:18 102 H 02/24/25 20:54 36.3 C L 99 H 24 175/77 H 96 O2 Del Method 02/25/25 01:11 02/25/25 01:00 Room Air 02/25/25 00:33 02/25/25 00:00 Room Air 02/24/25 23:33 02/24/25 23:07 Room Air 02/24/25 23:00 Room Air 02/24/25 22:00 Room Air 02/24/25 21:54 Room Air 02/24/25 21:18 02/24/25 20:54 Room Air Diagnostic Findings Laboratory Results WBC 14.47 K/ul (4.8-10.8) H 02/24/25 21:20 RBC 4.08 M/uL (4.20-5.40) L 02/24/25 21:20 Hgb 12.6 g/dl (12.0-16.0) 02/24/25 21:20 POC Hgb 13.3 g/dl (12.0-16.0) 02/24/25 21:26 Hct 37.4 % (37.0-47.0) 02/24/25 21:20 POC Hct 39 % (37-47) 02/24/25 21: MCV 91.7 fL (80.0-100.0) 02/24/25 21:20 MCH 30.9 pg (25.0-34.0) 02/24/25 21: MCHC 33.7 g/dL (32.0-36.0) 02/24/25 21:20 RDW Std Deviation 45.2 fL (36.4-46.3) 02/24/25 21:20 RDW Coeff of Althea 13.4 % (11.5-14.5) 02/24/25 21:20 Plt Count 318 K/uL (130-400) 02/24/25 21:20 MPV 10.5 fL (9.4-12.4) 02/24/25 21:20 Immature Gran % (Auto) 0.3 % 02/24/25 21: Neut % (Auto) 94.5 % 02/24/25 21:20 Lymph % (Auto) 3.6 % 02/24/25 21:20 Trinity % (Auto) 1.5 % 02/24/25 21:20 Eos % (Auto) 0.0 % 02/24/25 21:20 Baso % (Auto) 0.1 % 02/24/25 21:20 Neut # (Auto) 13.67 K/uL (1.40-6.50) H 02/24/25 21:20 Lymph # (Auto) 0.52 K/uL (1.20-3.40) L 02/24/25 21:20 Trinity # (Auto) 0.21 K/uL (0.11-0.59) 02/24/25 21:20 Eos # (Auto) 0.00 K/uL (0.00-0.50) 02/24/25 21:20 Baso # (Auto) 0.02 K/uL (0.00-0.20) 02/24/25 21:20 Immature Gran # (Auto) 0.05 K/uL (0.01-0.20) 02/24/25 21:20 POC Sodium 136 mmol/L (135-144) 02/24/25 21: Sodium 133 mmol/L (136-145) L 02/24/25 21:20 POC Potassium 4.0 mmol/L (3.3-5.0) 02/24/25 21: Potassium 4.0 mmol/L (3.5-5.1) 02/24/25 21:20 POC Chloride 104 mmol/L (101-112) 02/24/25 21: Chloride 101 mmol/L (98-107) 02/24/25 21:20 Carbon Dioxide 21 mmol/L (21-32) 02/24/25 21:20 POC Total CO2 19 mmol/L (24-31) L 02/24/25 21: Anion Gap 11 (3-11) 02/24/25 21:20 POC Anion Gap 18.0 mmol/L (16-25) 02/24/25 21:26 POC BUN 21 mg/dl (7-18) H 02/24/25 21:26 BUN 22 mg/dl (6-23) 02/24/25 21:20 Creatinine 1.62 mg/dl (0.6-1.2) H 02/24/25 21:20 POC Creatinine 1.6 mg/dl (0.6-1.3) H 02/24/25 21: Est Cr Clr Drug Dosing 26.4 ml/min 02/24/25 21:20 eGFR 30.18 02/24/25 21:20 BUN/Creatinine Ratio 13.6 (10-20) 02/24/25 21:20 Glucose 133 mg/dl (70-99(Fasting)) H 02/24/25 21:20 POC Glucose (other) 140 mg/dl (70-99) H 02/24/25 21:26 Calcium 9.5 mg/dl (8.6-10.3) 02/24/25 21: POC Ioniz Calcium Rowan 1.16 mmol/l (1.12-1.32) 02/24/25: Total Bilirubin 3.1 mg/dl (0.2-1.0) H 02/24/25 21:20 AST 203 U/L (13-39) H 02/24/25 21:20 ALT 197 U/L (7-52) H 02/24/25 21:20 Alkaline Phosphatase 194 U/L (34-104) H 02/24/25 21:20 Troponin I High Sens 15.6 pg/ml (0-14) H 02/24/25 21:20 Total Protein 8.1 gm/dl (6.0-8.3) 02/24/25 21: Albumin 4.1 gm/dl (3.4-5.0) 02/24/25 21: Globulin 4.0 gm/dl (2.5-4.0) 02/24/25 21:20 Albumin/Globulin Ratio 1.0 (0.9-2) 02/24/25 21:20 Lipase 20769 U/L (11-82) H 02/24/25 21:20 Urine Color Dark Yellow 02/24/25 21:00 Urine Appearance Clear (Clear) 02/24/25 21:00 Urine pH 5.5 (4.5-7.5) 02/24/25 21:00 Ur Specific Remer 1.016 (1.000-1.030) 02/24/25 21:00 Urine Protein 1+ (Negative) H 02/24/25 21:00 Urine Glucose (UA) Negative (Negative) 02/24/25 21:00 Urine Ketones Trace (Negative) H 02/24/25 21:00 Urine Blood Trace (Negative) H 02/24/25 21:00 Urine Nitrite Negative (Negative) 02/24/25 21:00 Urine Bilirubin 1+ (Negative) H 02/24/25 21:00 Urine Urobilinogen Negative (Negative) 02/24/25 21:00 Ur Leukocyte Esterase 2+ (Negative) H 02/24/25 21:00 Urine WBC (Auto) 21-50 /hpf (0-5) H 02/24/25 21:00 Urine RBC (Auto) 0-2 /hpf (0-2) 02/24/25 21:00 U Hyaline Cast (Auto) 0-2 /lpf (0-2) 02/24/25 21:00 U Epithel Cells (Auto) 3-5 /hpf (0-2) H 02/24/25 21:00 Urine Bacteria (Auto) 4+ (None Seen) H 02/24/25 21:00 Impressions Abdomen/Pelvis CT 02/24/25 21:28 Exam(s): CT ABDOMEN + PELVIS Without Contrast EXAM: CT Abdomen and Pelvis Without Intravenous Contrast CLINICAL HISTORY: Reason for exam: right and mid abd pain, vomiting. TECHNIQUE: Axial computed tomography images of the abdomen and pelvis without intravenous contrast. CTDI is 26.28 mGy and DLP is 1242.93 mGy-cm. Automated exposure control was utilized for the study. A dose lowering technique was utilized adhering to the principles of ALARA. COMPARISON: No relevant prior studies available. FINDINGS: The exam is limited due to lack of contrast. Lung bases: No consolidation. ABDOMEN: Liver: There are multiple lucencies within the liver, the largest of which measures 2.5 cm in size Gallbladder and bile ducts: The patient is status post cholecystectomy. The common bile duct is dilated at 1.8 cm.. Pancreas: The visualized portions of the pancreas, on this noncontrast study, are grossly unremarkable.. Spleen: No splenomegaly. Adrenals: The left adrenal gland is unremarkable. There is a 1.5 cm nodule in the right adrenal gland Kidneys and ureters: No obstructing stones. No hydronephrosis. There is a 2.8 cm lucency in the left kidney. Stomach and bowel: There is a moderate hiatal hernia. There is air and stool noted in the colon. There are diverticula present on the colon. No significant inflammatory changes are seen. PELVIS: Appendix: Unremarkable CT scan appearance noted the appendix.. Bladder: No calculi are noted within the bladder.. Reproductive: Unremarkable as visualized. ABDOMEN and PELVIS: Intraperitoneal space: No free air. No significant fluid collection. Bones/joints: There are degenerative changes in the spine.. Soft tissues: Unremarkable. Vasculature: There are atherosclerotic changes. No abdominal aortic aneurysm. Lymph nodes: No enlarged lymph nodes. IMPRESSION: The patient is status post cholecystectomy. The common bile duct is dilated. A 1.5 cm nodule in the right adrenal gland may represent an adenoma. Diverticulosis. There are lucencies noted within the liver which may represent cysts. Masses cannot be excluded on this noncontrast study. For further evaluation, consider correlation with a nonemergent contrast-enhanced MRI. There is a possible left renal cyst. Electronically signed by: Bill Stover MD 02/24/25 23:[address] 02/24/25 21:28 Exam(s): CT L SPINE EXAM: CT Lumbar Spine Without Intravenous Contrast CLINICAL HISTORY: Reason for exam: L1 back pain, abd pain, no trauma, hx stenosis. TECHNIQUE: Axial computed tomography images of the lumbar spine without intravenous contrast. CTDI is 26.28 mGy and DLP is 1242.93 mGy-cm. Automated exposure control was utilized for the study. A dose lowering technique was utilized adhering to the principles of ALARA. COMPARISON: No relevant prior studies available. FINDINGS: Vertebrae: There is a mild dextroscoliosis and normal lumbar lordosis. There is a mild grade 1 retrolisthesis of L1 and L2 measuring 2 mm and anterolisthesis of L5 and S1 measuring 2 mm. Positive Worth sign at L3- 4 and L4-5. No acute fracture. Diffuse osteopenia throughout the visualized bones. Advanced right and moderate left sacroiliac joint arthropathy. Discs/spinal canal/neural foramina: No acute findings. There is a moderate right L5-S1 neural foraminal stenosis. Advanced disc degeneration at L2-3 and L3-4. No spinal canal stenosis. Soft tissues: Hepatic steatosis. IMPRESSION: No evidence of acute lumbar spine pathology. Moderate right L5-S1 neural foraminal stenosis with impingement of the right L5 nerve root ganglion. Electronically signed by: Alla Sanford MD 02/25/25 00:27 AM ECG Additional Comments: ECG. Normal sinus rhythm. Inverted T waves in the inferior leads. Code Status & VTE Plan VTE Prophylaxis Plan VTE Prophylaxis will be ordered: Yes
[2025-02-25] MEDS ORDERED: metroNIDAZOLE 500 MG/100 ML BAG IV SCH (08:45)
[2025-02-25] MEDS ORDERED: NITROGLYCERIN SL 0.4 MG/TAB TAB SL PRN (08:45)
[2025-02-25] MEDS ORDERED: ONDANSETRON INJ 2 MG/ML 2 ML VIAL IV PRN (08:45)
[2025-02-25] MEDS ORDERED: HYDROmorphone INJ 0.5 MG/0.5 ML SYR IV PRN (08:45)
[2025-02-25 09:56] LABS: Basophils # (auto) 0.01 K/uL (0.00-0.20); Basophils % (auto) 0.1 %; Hematocrit (blood only) 33.6 % (37.0-47.0); Hemoglobin 11.2 g/dl (12.0-16.0); Immature Granulocytes # (auto) 0.05 K/uL (0.01-0.20); Immature Granulocytes % (auto) 0.4 %; Lymphocytes # (auto) 0.77 K/uL (1.20-3.40); Lymphocytes % (auto) 5.4 %; Mean Corpuscular Hemoglobin 31.2 pg (25.0-34.0); Mean Corpuscular Hgb Conc 33.3 g/dL (32.0-36.0); Mean Corpuscular Volume 93.6 fL (80.0-100.0); Mean Platelet Volume 10.7 fL (9.4-12.4); Monocytes % (auto) 5.6 %; Neutrophils # (auto) 12.54 K/uL (1.40-6.50); Neutrophils % (auto) 88.5 %; Platelet Count 272 K/uL (130-400); RDW Coefficient of Variation 13.4 % (11.5-14.5); RDW Standard Deviation 45.8 fL (36.4-46.3); Red Blood Count 3.59 M/uL (4.20-5.40); White Blood Count 14.17 K/ul (4.8-10.8)
[2025-02-25 10:15] LABS: Albumin Globulin Ratio 0.9 (0.9-2); Albumin Level 3.3 gm/dl (3.4-5.0); BUN Creatinine Ratio 14.3 (10-20); Bilirubin,Total 2.9 mg/dl (0.2-1.0); Calcium 9.1 mg/dl (8.6-10.3); Creatinine Clr Calc Pharmacy 30.6 ml/min; Globulin 3.6 gm/dl (2.5-4.0); Potassium 4.3 mmol/L (3.5-5.1); Total Protein 6.9 gm/dl (6.0-8.3)
[2025-02-25 10:16] LABS: Albumin Level 3.3 gm/dl (3.4-5.0); BUN Creatinine Ratio 14.2 (10-20); Bilirubin,Total 2.9 mg/dl (0.2-1.0); Calcium 9.1 mg/dl (8.6-10.3); Creatinine Clr Calc Pharmacy 30.4 ml/min; Magnesium 1.5 mg/dl (1.7-2.4); Potassium 4.3 mmol/L (3.5-5.1); Total Protein 6.8 gm/dl (6.0-8.3)
--- NOTE | 2025-02-25 10:18 | Communication Note ---
Date of Service: February 25, 2025 Patient seen and examined Reports abd pain much improved Nausea is resolved CT abd noted dilated CBD MRCP did not show choledocholithiasis, hence possibly possibly passed stone LFT improving Discussed with GI who recommends no need for ERCP at this time, start clears Resume warfarin 5mg TTS, 2.5mg other days Stop flagyl UCx growing Klebsiella. Continue cefepime for now and deescalate as appropriate Other plans as detailed in H&P
[2025-02-25 10:22] LABS: Troponin I High Sensitivity 16.9 pg/ml (0-14)
[2025-02-25 10:25] LABS: INR 2.1 (0.9-1.1); Prothrombin Time 21.4 Seconds (9.0-12.0)
--- NOTE | 2025-02-25 11:12 | Magnetic Resonance Report ---
MR MRCP CLINICAL HISTORY: pancreatitis, elevated lft TECHNIQUE: MRCP of the abdomen was obtained with heavily weighted T2 sequences. Maximum intensity pro jections were created. No contrast was administered. COMPARISON STUDY: CT scan yesterday. FINDINGS: There is motion artifact. Gallbladder is surgically absent. There are a few cysts in the li maribeth and kidneys. There is possible minimal inflammation at the pancreas. No peripancreatic fluid seen . Common bile duct is dilated measuring 1.8 cm greatest diameter. There is mild dilatation of the sparks creatic duct measuring 5 cm diameter. No common bile duct stone seen. No gross pancreatic head mass s een. IMPRESSION: 1. Possible early pancreatitis with no peripancreatic fluid or pseudocyst. 2. Prominent distention of the common bile duct and mild distention of the pancreatic duct with no co mmon bile duct stone or gross pancreatic head mass seen. 3. Otherwise as described. ACT 112: Negative or not required by law. Electronically signed by: Yamil Dickson M.D. 02/25/2025 11:10 AM
[2025-02-25] MEDS: CEFEPIME 1000MG 1,000 MG/10 ML SYR IV SCH (11:16)
[2025-02-25] MEDS: metroNIDAZOLE 500 MG/100 ML BAG IV SCH (11:18)
[2025-02-25] MEDS: CHOLECALCIFEROL 25 MCG (1000 UNITS) TAB PO SCH (11:36)
[2025-02-25] MEDS: PANTOprazole 40 MG TAB PO SCH (11:36)
[2025-02-25] MEDS: CYANOCOBALAMIN (B-12) 100 MCG TABLET PO SCH (11:36)
[2025-02-25] MEDS: amLODIPine BESYLATE 5 MG TAB PO SCH (11:36)
[2025-02-25] MEDS: LOSARTAN POTASSIUM 50 MG TAB PO SCH (11:36)
--- NOTE | 2025-02-25 12:22 | Gastrointestinal Consultation ---
Date of Consultation February 25, 2025 Assessment & Plan (1) Pancreatitis: (2) Elevated LFTs: Mild acute pancreatitis with elevated bilirubin of 3.1. The patient is s/p cholecystectomy. I believe that patient passed common bile duct stone. With no evidence of choledocholithiasis on MRCP I would hold ERCP. Continue to observe. Advance diet. History of Present Illness Reason for Consultation: Acute pancreatitis Attending Physician: Aliya Cabrera MD History of Present Illness Experienced transient upper abdominal radiating to back with vomiting about 2 weeks ago. Symptoms resolved but recurred yesterday. Presented to the emergency room because of severe upper abdominal pain radiating to the back and the vomiting. Lipase was 10,102 on admission. Patient is s/p cholecystectomy several years ago Total bilirubin 3.1, decreased to 2.9 today. AST 203, ALT 187, alkaline phosphatase 194 CT abdomen pelvis shows, CBD is dilated. The pancreas was normal. There were multiple liver cysts. 1.5 cm node in the right adrenal gland may represent adenoma.(needs followup for adrenal lesion). MRCP showed dilated common bile duct of 1.8 cm in diameter with no evidence of choledocholithiasis. There was evidence of mild pancreatitis on MRI. S/p cholecystectomy. The patient was given emetics, IV fluids. Her pain has resolved. Allergies Allergy/AdvReac Type Severity Reaction Status Date / Time Penicillins Allergy Intermediate Hives Verified 02/24/25 22:19 Influenza Virus Vaccines AdvReac Intermediate Muscle Pain Verified 02/24/25 22:19 Home Medications Medication Instructions Recorded Confirmed Type omeprazole magnesium 20 mg 20 mg PO DAILY 06/03/22 02/24/25 History tablet,delayed release (Prilosec OTC) simvastatin 20 mg tablet 20 mg PO HS 06/03/22 02/24/25 History warfarin 5 mg tablet 2.5 mg PO 4XWK 06/03/22 02/24/25 History warfarin 5 mg tablet 5 mg PO 3XWK 06/03/22 02/24/25 History amlodipine 5 mg tablet 5 mg PO DAILY 02/24/25 02/24/25 History aspirin 81 mg tablet,delayed 81 mg PO HS 02/24/25 02/24/25 History release cholecalciferol (vitamin D3) 25 25 mcg PO DAILY 02/24/25 02/24/25 History mcg (1,000 unit) capsule (Vitamin D3) cyanocobalamin (vitamin B-12) 100 100 mcg PO DAILY 02/24/25 02/24/25 History mcg tablet (Vitamin B-12) hydrochlorothiazide 12.5 mg tablet 12.5 mg PO DAILY 02/24/25 02/24/25 History losartan 50 mg tablet 50 mg PO DAILY 02/24/25 02/24/25 History Patient History Medical History No pertinent family history Surgical History No pertinent past surgical history Social History Smoking Status: Never smoker Preferred Language: Bangladeshi Feels Safe at Home: Yes Review of Systems Review of Systems: Constitutional: Denies weight loss, chills, fever, fatigue. Respiratory: Denies cough, denies shortness of breath. Cardiovascular: Denies chest pain and palpitations. Gastrointestinal: Denies nausea, vomiting, diarrhea, constipation, abdominal pain. Physical Exam Physical Exam: Constitutional: WD/WN, vitals as above Respiratory: normal respiratory effort, lungs clear to auscultation Cardiovascular: RRR, no murmur, no edema Gastrointestinal (Abdomen): normal bowel sounds, soft, nontender, no hep atosplenomegaly. Neurological: Oriented x 3, grossly no focal abnormalities, speech is intact. Results & Data Vital Signs (Past 12 Hours) Vital Signs Pulse Pulse Resp BP BP Pulse Ox Pulse Ox 02/25/25 11:20 02/25/25 11:20 72 14 129/59 L 94 02/25/25 09:50 93 02/25/25 08:50 72 02/25/25 08:06 68 19 96 02/25/25 08:00 124/59 L 02/25/25 07:57 70 22 97 02/25/25 07:21 69 26 H 95 02/25/25 07:00 65 18 132/57 L 97 02/25/25 06:30 65 18 97 02/25/25 06:00 74 19 128/63 97 02/25/25 05:30 88 20 96 02/25/25 05:15 73 02/25/25 04:36 70 19 98 02/25/25 04:00 75 19 133/67 96 02/25/25 03:39 74 15 96 02/25/25 03:00 73 18 131/66 97 02/25/25 02:24 76 17 136/83 96 02/25/25 02:00 82 22 123/58 L 90 02/25/25 01:11 84 02/25/25 01:00 79 22 135/75 92 02/25/25 01:00 77 20 135/75 91 02/25/25 00:33 76 24 92 O2 Del Method O2 Del Method O2 Flow Rate 02/25/25 11:20 Room Air 02/25/25 11:20 Room Air 02/25/25 09:50 Room Air 02/25/25 08:50 02/25/25 08:06 02/25/25 08:00 02/25/25 07:57 02/25/25 07:21 02/25/25 07:00 Nasal Cannula 3 02/25/25 06:30 Nasal Cannula 3 02/25/25 06:00 Nasal Cannula 3 02/25/25 05:30 Nasal Cannula 3 02/25/25 05:15 02/25/25 04:36 Nasal Cannula 3 02/25/25 04:00 Nasal Cannula 3 02/25/25 03:39 Nasal Cannula 3 02/25/25 03:00 Nasal Cannula 3 02/25/25 02:24 Nasal Cannula 3 02/25/25 02:00 Room Air 02/25/25 01:11 02/25/25 01:00 Room Air 02/25/25 01:00 Room Air 02/25/25 00:33 PG Care Time/CCT Total # of Minutes Spent Total Time Spent with Patient: Total time spent is greater than 50% in coordination of care (as documented) at patient's floor/unit and/or counseling patient: Coding Level of Care Code 96664 INT INP/OBS CARE 2/55MIN Diagnoses Pancreatitis K85.90 Elevated LFTs R79.89
--- NOTE | 2025-02-25 12:33 | Electrocardiogram Report ---
Test Reason : Blood Pressure : */* mmHG Vent. Rate : 93 BPM Atrial Rate : 93 BPM P-R Int : 188 ms QRS Dur : 96 ms QT Int : 364 ms P-R-T Axes : 12 -28 -4 degrees QTcB Int : 452 ms Normal sinus rhythm Moderate voltage criteria for LVH, may be normal variant ( R in aVL ) Anterior infarct (cited on or before 26-Aug-2008) Abnormal ECG When compared with ECG of 25-Feb-2024 14:35, QRS axis Shifted left Inverted T waves have replaced nonspecific T wave abnormality in Inferior leads Confirmed by Mayo Gray ([id number]) on 02/25/2025 12:33:30 PM Referred By: REFERRED SELF Confirmed By: Mayo Gray
[2025-02-25] MEDS: SIMVASTATIN 20 MG TAB PO SCH (20:18)
[2025-02-25] MEDS: ASPIRIN 81 MG ECTAB PO SCH (20:18)
[2025-02-26 07:43] LABS: Albumin Globulin Ratio 0.9 (0.9-2); BUN Creatinine Ratio 12.5 (10-20); Bilirubin,Total 2.3 mg/dl (0.2-1.0); Calcium 8.8 mg/dl (8.6-10.3); Creatinine Clr Calc Pharmacy 30.3 ml/min; Globulin 3.3 gm/dl (2.5-4.0); Magnesium 1.4 mg/dl (1.7-2.4); Phosphorus 2.2 mg/dl (2.5-4.9); Potassium 4.2 mmol/L (3.5-5.1); Total Protein 6.3 gm/dl (6.0-8.3)
[2025-02-26] MEDS ORDERED: cefTRIAXone SODIUM 1,000 MG/50 ML BAG IV SCH (07:45)
[2025-02-26 07:46] LABS: Hemoglobin 10.2 g/dl (12.0-16.0); Mean Corpuscular Hemoglobin 30.7 pg (25.0-34.0); Mean Corpuscular Hgb Conc 32.9 g/dL (32.0-36.0); Mean Corpuscular Volume 93.4 fL (80.0-100.0); Mean Platelet Volume 10.7 fL (9.4-12.4); Platelet Count 245 K/uL (130-400); RDW Coefficient of Variation 13.8 % (11.5-14.5); RDW Standard Deviation 46.5 fL (36.4-46.3); Red Blood Count 3.32 M/uL (4.20-5.40); White Blood Count 14.28 K/ul (4.8-10.8)
[2025-02-26 07:52] LABS: INR 1.8 (0.9-1.1); Prothrombin Time 18.5 Seconds (9.0-12.0)
[2025-02-26] MEDS: cefTRIAXone SODIUM 2,000 MG/50 ML BAG IV SCH (08:31)
[2025-02-26] MEDS: MAGNESIUM SULFATE / D5W 1 GM/100 ML BAG IV SCH (09:27)
--- NOTE | 2025-02-26 09:41 | Electrocardiogram Report ---
Test Reason : Blood Pressure : */* mmHG Vent. Rate : 72 BPM Atrial Rate : 72 BPM P-R Int : 194 ms QRS Dur : 106 ms QT Int : 386 ms P-R-T Axes : 26 -7 13 degrees QTcB Int : 422 ms Sinus rhythm with Premature atrial complexes Possible Anterior infarct (cited on or before 26-Aug-2008) Abnormal ECG When compared with ECG of 24-Feb-2025 21:50, Premature atrial complexes are now Present Confirmed by Mayo Gray ([id number]) on 02/26/2025 9:41:45 AM Referred By: REFERRED SELF Confirmed By: Mayo Gray
--- NOTE | 2025-02-26 10:57 | Hospitalist Progress Note ---
Date of Service February 26, 2025 Assessment & Plan (1) Pancreatitis: Plan: 89-year-old female with past medical history significant for hyperlipidemia, hyperparathyroidism, hypertension, vitamin D deficiency, CKD stage III, female stress incontinence, osteoarthritis, deafness left ear, prothrombin gene mutation, history of pulmonary embolism several years ago and on Coumadin presents with back pain and nausea /vomiting and also lower abdominal pain. Acute Pancreatitis Came with back pain, nausea ,vomiting and lower abdominal pain Patient is s/p cholecystectomy several years ago Lipase is 10,102 Total bilirubin 3.1, AST 203, ALT 187, alkaline phosphatase 194 CT abdomen pelvis shows, CBD is dilated. 1.5 cm node in the right adrenal gland may represent adenoma.(needs followup for adrenal lesion) MRCP did not show choledocholithiasis, hence possibly possibly passed stone LFT improving Symptoms improving Advance diet Hypomagnesemia Hypophosphatemia Replete and monitor Acute UTI Urine Cx grew Klebsiella pneumonia Abx changed to IV ceftriaxone Mild elevation troponin Patient asymptomatic Mostly demand ischemia Back pain Lumbar spine CT shows moderate right L5-S1 neural foraminal stenosis with impingement of the right 5th nerve root ganglia Patient reports this is not new as her previous Dr had told her about that in the past CKD stage III Stable Hypertension Amlodipine and losartan with holding parameters GERD On omeprazole History of prothrombin gene mutation History of PE several years ago On Coumadin INR is 1.8 Full code I spent a total of 50 minutes coordinating, documenting and providing care for this patient excluding time spent in performance of separately billed services Admission and Anticipated Discharge Date Admission Date: February 25, 2025 Subjective Patient seen and examined Reports abd pain and back pain are significantly improved No other complaints at this time Physical Exam Constitutional: + well hydrated; no acute distress Eyes: PERRL, conjunctivae normal, anicteric sclerae ENMT: external ear and nose normal, oropharynx normal Respiratory: normal respiratory effort, lungs clear to auscultation Cardiovascular: Rate/Rhythm: regular rate and regular rhythm Gastrointestinal (Abdomen): normal bowel sounds, soft, nontender, no hepatosplenomegaly Neurologic: PERRL, EOMI, accommodation nl, no face palsy, no dysarthria Psychiatric: A+Ox3, euthymic affect Results & Data Results & Data Vital Signs (Past 12 Hours) Vital Signs Temp Pulse Pulse Resp BP Pulse Ox Pulse Ox 02/26/25 07:52 36.8 C 69 16 120/65 93 02/26/25 07:02 74 02/26/25 07:02 02/26/25 03:53 92 02/26/25 02:59 36.8 C 75 18 137/61 87 L O2 Del Method O2 Del Method 02/26/25 07:52 Room Air 02/26/25 07:02 02/26/25 07:02 Room Air 02/26/25 03:53 Room Air 02/26/25 02:59 Room Air Laboratory Results Abnormal lab results 02/25/25 02/26/25 Range/Units 14:49 07:04 WBC 14.28 H (4.8-10.8) K/ul RBC 3.32 L (4.20-5.40) M/uL Hgb 10.2 L (12.0-16.0) g/dl Hct 31.0 L (37.0-47.0) % RDW Std Deviation 46.5 H (36.4-46.3) fL PT 18.5 H (9.0-12.0) Seconds INR 1.8 H (0.9-1.1) Creatinine 1.44 H (0.6-1.2) mg/dl Phosphorus 2.2 L (2.5-4.9) mg/dl Magnesium 1.4 L (1.7-2.4) mg/dl Total Bilirubin 2.3 H (0.2-1.0) mg/dl AST 95 H (13-39) U/L ALT 121 H (7-52) U/L Alkaline Phosphatase 146 H (34-104) U/L Troponin I High Sens 19.2 H (0-14) pg/ml Albumin 3.0 L (3.4-5.0) gm/dl
[2025-02-26] MEDS: POT PHOSPHATE MONOBASIC W/ SOD TAB PO SCH (13:19)
[2025-02-26] MEDS: WARFARIN SOD 2.5 MG TAB PO SCH (16:12)
[2025-02-27 03:38] VITALS: RESP 16; TEMP 98.4
[2025-02-27 07:29] LABS: Albumin Globulin Ratio 0.9 (0.9-2); Albumin Level 2.9 gm/dl (3.4-5.0); BUN Creatinine Ratio 11.4 (10-20); Bilirubin,Total 1.7 mg/dl (0.2-1.0); Calcium 8.4 mg/dl (8.6-10.3); Creatinine Clr Calc Pharmacy 35.9 ml/min; Globulin 3.2 gm/dl (2.5-4.0); Magnesium 1.6 mg/dl (1.7-2.4); Phosphorus 2.7 mg/dl (2.5-4.9); Potassium 3.7 mmol/L (3.5-5.1); Total Protein 6.1 gm/dl (6.0-8.3)
[2025-02-27 07:39] LABS: INR 1.7 (0.9-1.1); Prothrombin Time 17.5 Seconds (9.0-12.0)
[2025-02-27 08:04] VITALS: BP 116/65; O2SAT 93
[2025-02-27] MEDS: MAGNESIUM SULFATE / D5W 1 GM/100 ML BAG IV SCH (09:09)
--- NOTE | 2025-02-27 10:13 | Discharge Summary ---
Date of Service February 27, 2025 Admission HPI Per Admitting Provider 89-year-old female with past medical history significant for hyperlipidemia, hyperparathyroidism, hypertension, vitamin D deficiency, CKD stage III, female stress incontinence, osteoarthritis, deafness left ear, prothrombin gene mutation, history of pulmonary embolism several years ago and on Coumadin presents with back pain and nausea /vomiting and also lower abdominal pain. Patient says since yesterday she is having back pain and also nausea vomiting. And also lower abdominal pain. Currently symptoms improved. Feeling better currently. Patient says she had similar episode several months ago and also couple of weeks ago. Couple of weeks ago she had abdominal pain, nausea and chills which resolved by themselves. But today no chills or fever. Normal bowel and bladder movements. Denies any chest pain or shortness of breath. No cough. No runny nose or sore throat. No headache. Currently resting comfortably and hemodynamically stable.No pain in the legs. No numbness in the legs. Ambulates okay. Past medical history. As mentioned above. Past surgical history. Left bimalleolar ankle fracture repair. Laparoscopic cholecystectomy. Social history. . No smoking. Alcohol rarely. No drug use. Family history. Mother had lung cancer. Admission Exam Per Admitting Provider General- Not in distress Head- atraumatic Eyes- PERRL. ENT- oropharynx clear Neck- supple, no JVD. Lungs- clear to auscultation no wheezing or crackles Heart- regular rhythm; no murmur, no gallop. Abdomen- normal bowel sounds, soft, nontender, no distension Extremities- no pretibial edema, no erythema seen Neuro- alert, oriented PERRL, no facial palsy; no dysarthria; moves extremities Principal Diagnosis Acute pancreatitis Urinary tract infection Discharge Exam Constitutional + well hydrated; no acute distress Eyes PERRL, conjunctivae normal, anicteric sclerae ENMT external ear and nose normal, oropharynx normal Respiratory normal respiratory effort, lungs clear to auscultation Cardiovascular Rate/Rhythm: regular rate and regular rhythm Gastrointestinal (Abdomen) normal bowel sounds, soft, nontender, no hepatosplenomegaly Neurologic PERRL, EOMI, accommodation nl, no face palsy, no dysarthria Psychiatric A+Ox3, euthymic affect Discharge Data Allergies Allergy/AdvReac Type Severity Reaction Status Date / Time Penicillins Allergy Intermediate Hives Verified 02/24/25 22:19 Influenza Virus Vaccines AdvReac Intermediate Muscle Pain Verified 02/24/25 22:19 Consultations 02/24/25 23:22 ED Decision to Admit Stat 02/25/25 08:45 Consult Gastroenterology Routine Ordered Studies 02/24/25 21:28 CT abd pelvis wo con Stat CT lumbar spine wo con Stat 02/25/25 03:44 MR MRCP Urgent Hospital Course (1) Pancreatitis: 89-year-old female with past medical history significant for hyperlipidemia, hyperparathyroidism, hypertension, vitamin D deficiency, CKD stage III, female stress incontinence, osteoarthritis, deafness left ear, prothrombin gene mutation, history of pulmonary embolism several years ago and on Coumadin presents with back pain and nausea /vomiting and also lower abdominal pain. Acute Pancreatitis Came with back pain, nausea ,vomiting and lower abdominal pain Patient is s/p cholecystectomy several years ago Lipase is 10,102 Total bilirubin 3.1, AST 203, ALT 187, alkaline phosphatase 194 CT abdomen pelvis shows, CBD is dilated. 1.5 cm node in the right adrenal gland may represent adenoma.(needs followup for adrenal lesion) MRCP did not show choledocholithiasis, hence possibly possibly passed stone LFT are improving Symptoms resolved and tolerating diet Hypomagnesemia Hypophosphatemia These were repleted Discharged on po mag PCP to check BMP and Mag level on follow up Acute UTI Urine Cx grew Klebsiella pneumonia Got IV antibiotics inpatient Antibiotics changed to cefdinir to complete treatment Mild elevation troponin Patient asymptomatic Mostly demand ischemia Back pain Lumbar spine CT shows moderate right L5-S1 neural foraminal stenosis with impingement of the right 5th nerve root ganglia Patient reports this is not new as her previous Dr had told her about that in the past CKD stage III Stable Total Time Total Time Spent Total Time Spent (In Minutes): 35 Total Time Includes: Examination of the Patient, Discharge Planning and Medication Reconciliation Discharge Plan Discharge Items Patient Disposition: Home - Self-Care Reason For Visit: ACUTE PANCREATITIS, ELEVATED LFT, UTI, ELEVATED TR Discharge Diagnosis: Acute pancreatitis Urinary tract infection Activity: Resume your previous activity Non-emergency contact: Primary Care Provider Call non-emergency contact if: you have any medication questions Follow-up/Referrals: Elo Olvera DO [Primary Care Provider] - (Date & Time 03/03/2025 11:50 AM Provider: Elo Olvera DO Family [facility] ) Diet: Heart Healthy Addtl Attending Provider Instructions: Mrs Valencia You were hospitalized and managed for the above listed diagnoses. You are being discharged home. You were started on magnesium tablet for low magnesium level. You are also being discharged on antibiotics to complete treatment Please ensure follow up with your Primary Doctor. It was a pleasure taking care of you Pending Studies at Discharge: No Stand-Alone Forms: My [facility], Smoking Cessation Medications and DC Order Prescriptions: New magnesium chloride 64 mg tablet,delayed release (DR/EC) 64 mg PO DAILY Qty: 7 0RF cefdinir 300 mg capsule 300 mg PO BID 4 Days Qty: 8 0RF Continued simvastatin 20 mg tablet 20 mg PO HS warfarin 5 mg tablet 5 mg PO [id number] Rx Instructions: TAKES TUES, THURS, & SAT. EVENINGS warfarin 5 mg tablet 2.5 mg PO [id number] Rx Instructions: TAKES SUN, MON, WED, & FRI EVENINGS omeprazole magnesium [Prilosec OTC] 20 mg Tablet,Delayed Release (Dr/Ec) 20 mg PO DAILY losartan 50 mg tablet 50 mg PO DAILY cyanocobalamin (vitamin B-12) [Vitamin B-12] 100 mcg Tablet 100 mcg PO DAILY amlodipine 5 mg tablet 5 mg PO DAILY aspirin 81 mg Tablet,Delayed Release (Dr/Ec) 81 mg PO HS cholecalciferol (vitamin D3) [Vitamin D3] 25 mcg (1,000 unit) Capsule 25 mcg PO DAILY hydrochlorothiazide 12.5 mg tablet 12.5 mg PO DAILY Discharge Orders: Discharge Order (Routine); Ordered 02/27/25 Ordered By: Aliya Cabrera Admission Data Admit Date/Time: 02/25/25 03:44 Attending Provider: Aliya Cabrera I. Admit Provider: Gabino Johnson Primary Care Provider: Elo Olvera Other Providers: Gabino Johnson; Servando Bose Other Interventions: Discharge Summary Assessment (RN) Last Done: 02/27/25 11:02
[2025-02-27 11:05] VITALS: PULSE 74
--- NOTE | 2025-02-27 11:18 | Electrocardiogram Report ---
Test Reason : Blood Pressure : */* mmHG Vent. Rate : 82 BPM Atrial Rate : 82 BPM P-R Int : 186 ms QRS Dur : 102 ms QT Int : 374 ms P-R-T Axes : 39 -22 -5 degrees QTcB Int : 436 ms Normal sinus rhythm Poor R wave progression, consider anterior CO vs. lead placement vs. LVH Abnormal ECG When compared with ECG of 26-Feb-2025 05:51, Premature atrial complexes are no longer Present Confirmed by Qamar Allen ([id number]) on 02/27/2025 11:18:22 AM Referred By: REFERRED SELF Confirmed By: Qamar Allen
--- NOTE | 2025-02-27 11:39 | Gastroenterology Progress Note ---
Date of Service February 27, 2025 Assessment & Plan (1) Pancreatitis: Plan: Suspicious of stone passing through CBD. No evidence of choledocho on MRCP. She is tolerating a regular diet. She denies any further pain or discomfort at present. She is being discharged per hospitalist services today. I do not have any objections to this. Admission and Anticipated Discharge Date Admission Date: February 25, 2025 Subjective Patient is an 89 yo female with pancreatitis. She notes that she is feeling much better today and is going home. She is eating a regular diet. She denies new symptoms or concerns. T bili downtrending at 1.7. Afebrile, no leukocytosis, or persistent abdominal pain. Review of Systems Gastrointestinal: no abdominal pain, no change in bowel habits and no diarrhea/loose stools Physical Exam Gastrointestinal (Abdomen): normal bowel sounds, soft, nontender, no hepatosplenomegaly Results & Data Results & Data Vital Signs (Past 12 Hours) Vital Signs Temp Pulse Pulse Pulse Resp BP Pulse Ox 02/27/25 11:02 36.9 C 74 80 16 116/65 93 02/27/25 08:03 36.9 C 80 16 116/65 93 02/27/25 07:26 74 02/27/25 03:37 36.9 C 89 16 127/56 L 89 L O2 Del Method 02/27/25 11:02 02/27/25 08:03 Room Air 02/27/25 07:26 02/27/25 03:37 Room Air PG Care Time/CCT Total # of Minutes Spent Total Time Spent with Patient: Total time spent is greater than 50% in coordination of care (as documented) at patient's floor/unit and/or counseling patient: Coding Level of Care Code 15279 SUB INP/OBS CARE 2/35MIN Diagnoses Pancreatitis K85.90
[2025-02-28] MEDS ORDERED: WARFARIN SOD 5 MG TAB PO SCH (16:00)
== END 2025-02-27 14:06 | disposition home or self-care (01) | DRG 439 ==
LOC: ED 21:08 → EDINP 02-25 03:44 → 2N 02-25 15:00